=== PATIENT | male | born 1945 | race Caucasian/White ===

== ENCOUNTER 2018-08-09 13:01 | Outpatient (CLI) | payer MEDICARE ==
--- NOTE | 2018-08-09 14:27 | CT ---
CT BRAIN WITHOUT CONTRAST: HISTORY:Fall, contusion, headache the right occipital area of head. Headache COMPARISON:None FINDINGS: There are foci of decreased attenuation in the periventricular white matter, consistent with chronic small vessel ischemic disease. No evidence of acute infarct, hemorrhage, midline shift or abnormal extra-axial fluid collections is seen. The ventricular size is appropriate and the basilar cisterns are patent. The bony calvarium is intact. The visualized paranasal sinuses and mastoid air cells are well aerated. IMPRESSION: No CT evidence of acute intracranial process.
== END 2018-08-09 13:02 | disposition home or self-care (01) ==
LOC: BICCT 13:01
PROVIDERS: ATTEND Family Medicine
DX: S00.83XA Contusion of other part of head, initial encounter (principal)
CPT/HCPCS: 70450

== ENCOUNTER 2018-09-25 16:27 | Outpatient (CLI) | payer MEDICARE ==
--- NOTE | 2018-09-25 17:19 | MRI ---
MRI CERVICAL SPINE: HISTORY: Neck pain. TECHNIQUE: Multiplanar, multisequence, noncontrast enhanced MRI images of the cervical spine obtained. FINDINGS: No definite evidence of cord masses or lesions seen. C1-2: Unremarkable. C2-3: There is mild right C2-3 neural foraminal narrowing due to facet osteophyte encroachment. C3-4: There is disc desiccation seen. There is a broad-based disc osteophyte complex centrally comp ressing the thecal sac, resulting in moderate to severe thecal sac compression. Minimal cord compression is seen. There is moderate to severe right and severe left-sided C3-4 neural foraminal narrowing due to uncove rtebral osteophyte hypertrophy. C4-5: Disc desiccation is seen. There is a broad-based disc osteophyte complex centrally compressing the thecal sac, resulting in moderate to severe central stenosis. There is moderate to severe bilateral C4-5 neural foraminal narrowing due to uncovertebral osteophyte hypertrophy. C5-6: Disc desiccation is seen. There is a broad-based disc osteophyte complex centrally compressin g the thecal sac, resulting in moderate to severe central stenosis. There is moderate to severe right and left neural foraminal narrowing due to uncovertebral osteophyte hypertrophy. C6-7: Disc desiccation is seen. There is a broad-based central bilateral lateral recess and neural foraminal disc osteophyte complex compressing the thecal sac, resulting in moderate to severe left C6-7 neural foraminal narrowing and mild right-sided neural foraminal narrowing. C7-T1: There is a small central disc protrusion minimally but not significantly compressing the thec al sac. No evidence of cord compression is seen. The neural foramen are patent. IMPRESSION: Multilevel central and neural foraminal narrowing, resulting in compression of the thecal sac and edinson ral foramen at C3-4, C4-5, and C5-6, and to a lesser degree at C6-7. Transcribed Date/Time: 09/25/2018 5:55 PM
== END 2018-09-25 16:28 | disposition home or self-care (01) ==
LOC: MRI 16:27
PROVIDERS: ATTEND Family Medicine
DX: M54.2 Cervicalgia (principal); M48.02 Spinal stenosis, cervical region
CPT/HCPCS: 72141

== ENCOUNTER 2019-03-19 08:20 | Day surgery (SDC) | payer MEDICARE ==
[2019-03-16 14:28] VITALS: BMI 27.7
[2019-03-19 09:06] LABS: #Basophils 0.1 thou/uL (0.0-0.2); #Eosinphils 0.2 thou/uL (0.0-0.7); #Lymphocytes 2.3 thou/uL (1.20-3.40); #Monocytes 0.6 thou/uL (0.11-0.59); #Neutrophils 3.4 thou/uL (1.40-6.50); %Basophils 1.3 % (0.0-1.0); %Eosinophils 3.4 % (0.0-10.0); %Lymphocytes 34.7 % (21.0-51.0); %Monocytes 8.8 % (0.0-10.0); %Neutrophils 51.8 % (42.0-75.0); Mean Corpuscular HGB CONC 34.9 g/dL (32.0-36.0); Mean Corpuscular Volume 85.8 fL (78.0-98.0); Mean Platelet Volume 8.9 fL (7.4-10.4); Platelet Count 207 thou/uL (130-400); RBC Distribution Width 12.2 % (11.5-14.5); Red Blood Cell (RBC) Count 4.34 mill/uL (4.70-6.10); White Blood Cell (WBC) Count 6.5 thou/uL (4.8-10.8)
[2019-03-19 09:14] LABS: PTT 26.9 SEC (22.9-36.1)
[2019-03-19 09:53] LABS: Anion Gap 12 mmol/L (10-20); BUN (Urea Nitrogen) 22 mg/dL (8.4-25.7); Calc. Creatinine Clearance 76 mL/min (70-130); Calcium 9.3 mg/dL (7.8-10.44); Carbon Dioxide 25 mmol/L (23-31); Chloride 109 mmol/L (98-107); Estimated GFR-MDRD 78; Glucose 130 mg/dL (83-110); Sodium 142 mmol/L (136-145)
[2019-03-19] MEDS ORDERED: Lidocaine 1% (PF) 30 ML VIAL ONE (10:32)
[2019-03-19] MEDS ORDERED: Heparin 10,000 UNITS/1 ML VIAL ONE (10:32)
[2019-03-19] MEDS ORDERED: Heparin (Artline) 500 ML ONE (10:32)
[2019-03-19] MEDS ORDERED: PROPOFOL 20 ML ONE (10:50)
[2019-03-19] MEDS ORDERED: Isoproterenol 0.2 MG/1 ML AMP ONE (11:25)
[2019-03-19] MEDS ORDERED: DOPamine 400 MG/D5W 250 ML 250 ML ONE (11:54)
--- NOTE | 2019-03-19 14:01 | OP ---
DATE OF PROCEDURE: 03/19/2019 PROCEDURES PERFORMED: Electrophysiology study and radiofrequency ablation. REASON FOR PROCEDURE: Mr. Abel is a 73-year-old man with history of stroke in March, also had lower extremity clots with subsequent pulmonary venous embolism. He had remote history of bypass surgery. He had a LINQ recorder placed after a syncopal spell and was noted to have atrial flutter appearing rhythm, documented by his LINQ recorder. He is here for EP study and ablation. DESCRIPTION OF PROCEDURE: The patient received propofol for deep sedation by anesthesia specialist. After adequate level of sedation achieved, the right femoral venous area was prepped, draped, and anesthetized using subcutaneous lidocaine, and under ultrasound guidance, the right femoral vein was cannulated x2. Two 8-Persian short sheaths were introduced, through which a decapolar catheter was advanced to the right atrium, right ventricle, His bundle, and CS position. Pacing mapping and recording were performed in each location including pacing the left atrium via the CS. Following that, following findings were noted. The baseline rhythm was sinus rhythm with cycle length of 954 milliseconds, W[place] of 134 milliseconds, QRS is 65 millisecond, QT 404 milliseconds, AH 118 milliseconds, HV 52 milliseconds. Sinus node recovery time corrected was 428 milliseconds. AV Wenckebach cycle length was 390 milliseconds. Retrograde Wenckebach cycle length was 630 milliseconds. Concentric retrograde VA conduction was seen during ventricular pacing in the CS catheter. AV kristofer ERP was 600/340 milliseconds seen. No dual AV node physiology was present. Burst atrial pacing was performed, inducing an atrial flutter, which appears to be typical isthmus dependent with eventual self termination, but reinduced again. Cycle length about 230 millisecond. The burst overdrive atrial pacing at the cavotricuspid isthmus has yielded post pacing interval approximating the tachycardia, cycle length about 230 milliseconds. With the [employer] SFST catheter and 3D map of the right atrium, His bundle areas, CS os were obtained. During proximal CS pacing, cavotricuspid isthmus ablation was performed, prolonging the transisthmus time to 150 milliseconds. The longest transisthmus times were adjacent to the ablation line, suggestive of unilateral block. Burst atrial pacing on and off dopamine did not reinduce any tachyarrhythmias. No atrial fibrillation seen to be sustained during the study. The cardiac silhouette did not change pre and post procedure and the patient tolerated the procedure well. No complications noted. CONCLUSION: 1. Inducible typical isthmus dependent atrial flutter. 2. Cavotricuspid isthmus ablation prolongs transisthmus time to 150 milliseconds had re-inducibility to atrial flutter. 3. Borderline sinus kristofer function. 4. Normal atrioventricular kristofer infra-Hisian function. 5. No evidence of accessory pathway or dual atrioventricular kristofer physiology present. PLAN: 1. Continue monitoring with LINQ recorder for any recurrent atrial arrhythmias. 2. For now, hold off anticoagulation. Job ID: [id number]
--- NOTE | 2019-03-20 14:09 | EKG ---
Test Reason : PREOP Blood Pressure : / mmHG Vent. Rate : 064 BPM Atrial Rate : 064 BPM P-R Int : 176 ms QRS Dur : 126 ms QT Int : 396 ms P-R-T Axes : 067 -06 056 degrees QTc Int : 408 ms Normal sinus rhythm Right bundle branch block T wave abnormality, consider lateral ischemia Abnormal ECG No previous ECGs available Confirmed by MANUELA MEDINA, DR. Alexander ([id number]) on 03/20/2019 2:08:31 PM Referred By: GOYO Confirmed By:DR. Benjamin ROY MD
== END 2019-03-19 16:23 | disposition home or self-care (01) ==
LOC: CCL 08:20
PROVIDERS: ATTEND Internal Medicine Cardiovascular Disease
PROC: 4A023FZ Measurement of Cardiac Rhythm, Percutaneous Approach (ICD-10-PCS; principal; 2019-03-19)
PROC: 4A0234Z Measurement of Cardiac Electrical Activity, Percutaneous Approach (ICD-10-PCS; 2019-03-19)
PROC: 02583ZZ Destruction of Conduction Mechanism, Percutaneous Approach (ICD-10-PCS; 2019-03-19)
DX: I48.3 Typical atrial flutter (principal); I45.2 Bifascicular block; I25.10 Atherosclerotic heart disease of native coronary artery without angina pectoris; I10 Essential (primary) hypertension; E11.9 Type 2 diabetes mellitus without complications; M19.90 Unspecified osteoarthritis, unspecified site; Z79.01 Long term (current) use of anticoagulants; Z79.4 Long term (current) use of insulin; Z79.82 Long term (current) use of aspirin; Z79.899 Other long term (current) drug therapy; Z85.46 Personal history of malignant neoplasm of prostate; Z86.73 Personal history of transient ischemic attack (TIA), and cerebral infarction without residual deficits; Z95.1 Presence of aortocoronary bypass graft; Z95.5 Presence of coronary angioplasty implant and graft
CPT/HCPCS: 36415; 76942; 80048; 85025; 85610; 85730; 93005; 93010; 93613; 93623; 93653; C1732; C1769; J1265; J1644; J2001; J2704

== ENCOUNTER 2019-03-20 12:46 | Observation (INO) | payer MEDICARE ==
[2019-03-20] MEDS ORDERED: Iopamidol 370 76% 100 ML VIAL ONE (13:00)
[2019-03-20 13:31] LABS: #Basophils 0.1 thou/uL (0.0-0.2); #Eosinphils 0.2 thou/uL (0.0-0.7); #Lymphocytes 1.8 thou/uL (1.20-3.40); #Monocytes 0.8 thou/uL (0.11-0.59); #Neutrophils 8.8 thou/uL (1.40-6.50); %Basophils 0.5 % (0.0-1.0); %Eosinophils 1.9 % (0.0-10.0); %Lymphocytes 15.7 % (21.0-51.0); %Monocytes 6.7 % (0.0-10.0); %Neutrophils 75.2 % (42.0-75.0); Hemoglobin 13.8 g/dL (14.0-18.0); Mean Corpuscular HGB CONC 34.9 g/dL (32.0-36.0); Mean Corpuscular Hemoglobin 29.9 pg (27.0-31.0); Mean Corpuscular Volume 85.8 fL (78.0-98.0); Mean Platelet Volume 8.9 fL (7.4-10.4); Platelet Count 219 thou/uL (130-400); RBC Distribution Width 12.4 % (11.5-14.5); Red Blood Cell (RBC) Count 4.61 mill/uL (4.70-6.10); White Blood Cell (WBC) Count 11.7 thou/uL (4.8-10.8)
[2019-03-20 13:52] LABS: ALT (SGPT) 12 U/L (8-55); AST (SGOT) 27 U/L (5-34); Alkaline Phosphatase 109 U/L (40-110); Anion Gap 11 mmol/L (10-20); BUN (Urea Nitrogen) 19 mg/dL (8.4-25.7); Bilirubin, Total 0.8 mg/dL (0.2-1.2); CK (CPK) 83 U/L (30-200); Calc. Creatinine Clearance 0 mL/min (70-130); Calcium 9.4 mg/dL (7.8-10.44); Carbon Dioxide 26 mmol/L (23-31); Chloride 109 mmol/L (98-107); Estimated GFR-MDRD 89; Globulin 2.1 g/dL (2.4-3.5); Glucose 128 mg/dL (83-110); Lipase 22 U/L (8-78); Potassium 4.1 mmol/L (3.5-5.1); Protein, Total 6.1 g/dL (5.8-8.1); Sodium 142 mmol/L (136-145)
--- NOTE | 2019-03-20 14:04 | RAD ---
Chest AP view INDICATION: Chest pain COMPARISON: None FINDINGS: Lungs:The lungs are clear Cardiac silhouette:There is mild cardiomegaly and post-CABG change. There is a loop recorder overlyin g the left chest wall. Pulmonary vasculature:Normal Pleural spaces:No pleural effusion or pneumothorax is demonstrated. Upper abdomen:No abnormality seen. Osseous structures: No acute osseous abnormality. Additional findings:None. IMPRESSION: No acute cardiopulmonary abnormality.
[2019-03-20 14:20] LABS: CKMB 2.6 ng/mL (0-6.6)
[2019-03-20] MEDS ORDERED: Enoxaparin Sodium 80 MG/0.8 ML SYRINGE ONE (14:56)
--- NOTE | 2019-03-20 15:33 | CT ---
CT ANGIOGRAM THORAX WITH IV CONTRAST AND 3-D RECONSTRUCTIONS CLINICAL INDICATION: Chest pain and shortness of breath. COMPARISON: None FINDINGS: Pulmonary arteries: No filling defects are seen in the pulmonary arteries to suggest a pulmonary embo christiano. Aorta: Atherosclerotic vascular calcifications and plaque are seen in the thoracic aorta. The ascendi ng thoracic aorta is ectatic. There is no evidence of an aortic dissection. Lungs: There is linear scar versus atelectasis at the left lung base. The lungs are otherwise clear. No discrete pulmonary nodule, mass, or pleural effusion is identified. Mediastinum: Post surgical changes related to CABG are noted. Vascular calcifications are seen in the coronary arteries. No mediastinal lymphadenopathy is appreciated. Thyroid gland: Grossly normal in appearance where visualized. Osseous structures: Multilevel degenerative changes are seen in the thoracic spine. Chest wall: No abnormality visualized. Upper abdomen: Within normal limits for phase of imaging. IMPRESSION: 1. No CT evidence of a pulmonary embolus. 2. Atherosclerotic vascular calcifications and plaque involving the thoracic aorta and coronary arter ies with postsurgical changes related to prior CABG.
[2019-03-20] MEDS ORDERED: HumaLOG 300 UNITS/3 ML VIAL SC PRN (16:07)
[2019-03-20] MEDS ORDERED: Dextrose 50% Abboject 50 ML SYRINGE SLOW IVP PRN (16:07)
[2019-03-20] MEDS ORDERED: Ondansetron PF 4 MG/2 ML Vial IVP PRN (16:07)
[2019-03-20] MEDS ORDERED: Dextrose 5% in Water 1,000 ML IV PRN (16:07)
[2019-03-20 17:06] LABS: Critical Call Chem Troponin I RESULT DECREASING; Troponin I 0.862 ng/mL (< 0.028)
[2019-03-20 18:18] VITALS: BMI 30.3
[2019-03-20 19:58] LABS: Critical Call Chem Troponin I RESULT DECREASING; Troponin I 0.781 ng/mL (< 0.028)
[2019-03-20] MEDS ORDERED: Donepezil HCl 10 MG TAB PO SCH (21:00)
[2019-03-20] MEDS ORDERED: Enoxaparin Sodium 40 MG/0.4 ML SYRINGE SC SCH (21:00)
--- NOTE | 2019-03-20 22:58 | HP ---
CHIEF COMPLAINT: Chest pain and shortness of breath. HISTORY OF PRESENT ILLNESS: The patient is a 73-year-old male, who had ablation done on his heart yesterday by Dr. Yip and he did well. He was discharged home after the procedure, went home, went to bed, slept well and woke up in the morning and around 11 o'clock all of a sudden, he started having some shortness of breath and chest pain. He felt like elephant was sitting on his chest. He could not even talk. He was so short of breath and his called EMS and he was brought to the emergency room for further evaluation. PAST MEDICAL HISTORY: Positive for: 1. Diabetes mellitus type 2. 2. Hypertension. 3. 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 4. [place]. 5. Dementia. 6. Blood clots more than twice. 7. Coronary artery disease with stenting. PAST SURGICAL HISTORY: 1. Bilateral thumb surgery. 2. Appendectomy. 3. Tonsillectomy. 4. Right shoulder surgery for rotator cuff problem. 5. Cardiac ablation 03/19/2019. 6. CABG x3. SOCIAL HISTORY: He denies any alcohol use. He smokes very sporadically, maybe 2 cigarettes per week. He used to smoke a pack a day for approximately 25 years. FAMILY HISTORY: Mother at old age of dementia. Father had heart problem and he passed in his 90s. ALLERGIES: NONE. LABORATORY DATA: His last hemoglobin A1c was around 6. He was started on insulin and he is on 38 units of long-acting insulin daily. MEDICATIONS: Please refer to the list which is made and it is still not available at this point, to be reviewed, but it should be done in the next 30 minutes. REVIEW OF SYSTEMS: CONSTITUTIONAL: Negative for fever and chills. EYES: Negative for eye pain. Positive for some blurred vision in both eyes. CARDIOVASCULAR: Positive for chest pain. Negative for palpitations. PULMONARY: Positive for shortness of breath. Negative for cough. GI: Negative for nausea, vomiting, abdominal pain. : Negative for hematuria and dysuria. HEME/LYMPHATIC: Negative for easy bruisability and lymphedema. ENDOCRINE: Negative for polydipsia, polyuria. PSYCHIATRIC: Negative for homicidal or suicidal ideation or depression. PHYSICAL EXAMINATION: GENERAL: He is not in any distress during my visit. VITAL SIGNS: His blood pressure is 105/57, pulse is 60, respiratory rate is 16, O2 saturation is 100%. HEENT: His head is atraumatic and normocephalic. Eyes are PERRLA. Sclerae are nonicteric. Oral mucosa is moist. NECK: Supple. LUNGS: Clear. HEART: S1, S2 normal. No S3. No S4. ABDOMEN: Mildly tender in the epigastric area in both sides. No guarding, no masses. EXTREMITIES: No clubbing, cyanosis, or edema. Pulses palpable although somewhat diminished on both tibialis posterior and dorsalis pedis arteries similar bilaterally. NEUROLOGIC: He is alert and oriented x4. There is no any motor or sensory deficits present. Cranial nerves are intact. LABORATORY DATA: Labs showed white count of 11.7, hemoglobin of 13.8, hematocrit 39.6, platelet count is 219. D-dimer is 0.60. Sodium 142, potassium 4.1, chloride 109, CO2 of 26, BUN 19, creatinine 0.84, glucose 128. Troponin I 1.038. BNP 172.2, globulin 2.1 and the rest of chemistry is within normal limits. His CK is 83 and CK-MB is 2.6. Electrocardiogram was done and showed normal sinus rhythm with some right bundle-branch block. Chest x-ray personally reviewed by me showed no acute cardiopulmonary findings. The CT of the chest angiogram showed no evidence of pulmonary embolism. IMPRESSION: 1. Acute chest pain with lot of shortness of breath, rule out complication post ablation, rule out acute myocardial infarction, rule out acute pulmonary embolism. 2. Diabetes mellitus type 2. 3. History of lower extremity clot and pulmonary embolism. 4. History of old myocardial infarction. 5. Hypertension. 6. Cerebrovascular accident x2 without any deficits. 7. Dementia. PLAN: Admission for observation. CONDITION: Fair. ACTIVITY: Bedrest and bathroom privileges. IV Hep-Lock. DIET: Heart healthy diet. MEDICATIONS: 1. Lovenox 1 mg/kg started in the emergency room, then subcutaneously q.12 hours. Aspirin 325 mg once daily. 2. We are going to reconcile his home medications as soon as the list is available in the system. PLAN: We will get echocardiogram. We will get Cardiology consultation with Dr. Calvo and the case was discussed with him personally. We will start him on SCDs for DVT prophylaxis, mechanical. Job ID: [id number]
[2019-03-21 05:50] LABS: Anion Gap 12 mmol/L (10-20); BUN (Urea Nitrogen) 20 mg/dL (8.4-25.7); Calc. Creatinine Clearance 91 mL/min (70-130); Calcium 9.2 mg/dL (7.8-10.44); Carbon Dioxide 22 mmol/L (23-31); Chloride 109 mmol/L (98-107); Estimated GFR-MDRD 87; Glucose 255 mg/dL (83-110); Potassium 3.9 mmol/L (3.5-5.1); Sodium 139 mmol/L (136-145)
[2019-03-21 06:15] LABS: #Eosinphils 0.1 thou/uL (0.0-0.7); #Lymphocytes 1.8 thou/uL (1.20-3.40); #Monocytes 0.5 thou/uL (0.11-0.59); #Neutrophils 3.7 thou/uL (1.40-6.50); %Basophils 0.7 % (0.0-1.0); %Eosinophils 1.8 % (0.0-10.0); %Lymphocytes 29.4 % (21.0-51.0); %Monocytes 7.7 % (0.0-10.0); %Neutrophils 60.5 % (42.0-75.0); Hemoglobin 12.4 g/dL (14.0-18.0); Mean Corpuscular HGB CONC 34.8 g/dL (32.0-36.0); Mean Corpuscular Hemoglobin 29.7 pg (27.0-31.0); Mean Corpuscular Volume 85.4 fL (78.0-98.0); Mean Platelet Volume 9.1 fL (7.4-10.4); Platelet Count 155 thou/uL (130-400); Platelet Morphology Comment Appears Adequate; RBC Distribution Width 12.2 % (11.5-14.5); RBC Morphology Normal; Red Blood Cell (RBC) Count 4.18 mill/uL (4.70-6.10); White Blood Cell (WBC) Count 6.1 thou/uL (4.8-10.8)
--- NOTE | 2019-03-21 06:22 | CON ---
DATE OF CONSULTATION: REASON FOR CONSULTATION: Chest pain. PRIMARY [employer] SEQUESTRATION PLANT OPERATOR: Phu Rouse MD HISTORY OF PRESENT ILLNESS: Mr. Abel is a pleasant 73-year-old white gentleman, who comes to the hospital one day after having an atrial flutter ablation. He was at home after his ablation, doing well. This morning, he woke up and he had severe chest pressure. He rates it at a 10/10, could not even breathe from it, it is so severe. He has had to come in for evaluation. Initially, his troponin was 1, which is consistent with his history of recent ablation, but Cardiology is being consulted for this. On my evaluation, Mr. Abel is pain free. He is feeling much better, but he states that when they gave him a full dose aspirin that actually made a significant difference . Otherwise, no other issues at this time. PAST MEDICAL HISTORY: 1. Syncope and collapse. 2. Bifascicular block. 3. Coronary artery disease, status post CABG some years ago. 4. Stroke in March of last year. 5. DVTs and PEs in the past. 6. Peripheral vascular disease. 7. Atrial flutter. 8. Hypertension. 9. Cryptogenic stroke. 10. Type 2 diabetes. 11. Prostate cancer. 12. Arthritis. PAST SURGICAL HISTORY: 1. Stent placement. 2. CABG x3 ten years ago. 3. Hernia repair. 4. Appendectomy. 5. Tonsillectomy. 6. Prostatectomy. ALLERGIES: NO KNOWN DRUG ALLERGIES. OUTPATIENT MEDICATIONS: 1. Aspirin 81 mg b.i.d. 2. Tresiba FlexTouch 38 units subcu daily. 3. Glimepiride 4 mg a day. 4. Gemfibrozil 600 mg b.i.d. 5. Etodolac 400 mg b.i.d. 6. Bupropion. 7. Donepezil. 8. Plavix 75 mg a day. 9. Carvedilol 3.125 b.i.d. 10. Venlafaxine. 11. Amlodipine 5 mg a day. 12. Rosuvastatin 10 mg a day. 13. Ranolazine 500 mg b.i.d. 14. Omeprazole 40 mg a day. 15. Metoprolol succinate 100 mg a day. 16. Losartan 50 mg a day. 17. Levothyroxine 75 mcg a day. 18. Imdur 30 mg a day. ALLERGIES: NO KNOWN DRUG ALLERGIES. REVIEW OF SYSTEMS: A 12-point review of systems was done and was all negative unless stated in the history of present illness. PHYSICAL EXAMINATION: VITAL SIGNS: Temperature 98.6, pulse 68, respiratory rate 20, saturating 98% on room air, and blood pressure 146/69. GENERAL: Awake, alert, oriented x3. In no distress. HEENT: Normocephalic and atraumatic. NECK: Supple. LUNGS: Clear. CARDIOVASCULAR: S1 and S2. No S3 or S4. No murmurs. ABDOMEN: Soft. Positive bowel sounds. EXTREMITIES: No edema. SKIN: Warm and dry. LABORATORY DATA: Laboratory work was reviewed. White count of 11, hemoglobin of 13, hematocrit 39, platelet count of 219. D-dimer was high at 0.6. CMP was unremarkable. Troponin was 1.00, then 0.8 and 0.7 with a normal CK-MB. BNP was 172. Albumin of 4.0. DIAGNOSTIC DATA: CT of the chest was reviewed and no evidence of pulmonary embolism. Atherosclerotic vascular calcifications and plaque involving the thoracic aorta and coronary arteries with postsurgical changes related to CABG, but no other issues. Chest x-ray was reviewed. ASSESSMENT AND PLAN: 1. Chest pain. 2. Elevated troponins likely related to recent ablation. This would need to be a type 2 demand ischemia. This is just normal to have in the setting of ablation. 3. The level is downtrending appropriately to be directly related to his post-ablation state. 4. Atrial flutter, status post ablation. 5. Full anticoagulation with Eliquis. 6. Coronary artery disease, status post coronary artery bypass graft, stable at this time. PLAN: CT ruled out any major abnormalities. We will get a stat echocardiogram, make sure there is no significant fluid around the heart. He has had bypass, so he does not have an impact to pericardium; however, this could still be the case. No signs or any evidence of tamponade at this time. Thank you for letting us participate in the care of your patient. We will follow. Job ID: [id number]
[2019-03-21] MEDS ORDERED: Gemfibrozil 600 MG TAB PO SCH (07:30)
[2019-03-21] MEDS ORDERED: Levothyroxine Sodium 75 MCG TAB PO SCH (07:30)
[2019-03-21] MEDS ORDERED: Losartan 25 MG TAB PO SCH (09:00)
[2019-03-21] MEDS ORDERED: Rosuvastatin 10 MG TAB PO SCH (09:00)
[2019-03-21] MEDS ORDERED: buPROPion 75 MG TAB PO SCH (09:00)
[2019-03-21] MEDS ORDERED: Aspirin Chewable 81 MG TAB PO SCH (09:00)
[2019-03-21] MEDS ORDERED: Insulin Glargine 38 UNITS in Pre-Filled Syringe 1 EACH SC SCH (09:00)
[2019-03-21] MEDS ORDERED: Glimepiride 4 MG TAB PO SCH (09:00)
[2019-03-21] MEDS ORDERED: Isosorbide Mononitrate (ER) 30 MG TAB PO SCH (09:00)
[2019-03-21] MEDS ORDERED: Enoxaparin Sodium 80 MG/0.8 ML SYRINGE SC SCH (09:00)
[2019-03-21] MEDS ORDERED: Carvedilol 3.125 MG TAB PO SCH (09:00)
[2019-03-21] MEDS ORDERED: Amlodipine 5 MG TAB PO SCH (09:00)
[2019-03-21] MEDS ORDERED: Venlafaxine XR 37.5 MG CAP PO SCH (09:00)
[2019-03-21] MEDS ORDERED: Indomethacin 25 mg Capsule PO SCH ×2 (10:00→21:00)
--- NOTE | 2019-03-21 11:30 | PRG ---
DATE OF SERVICE: 03/21/2019 OBJECTIVE: VITAL SIGNS: Blood pressure is 131/73, pulse is 89, temperature is 97.6, respirations 14, O2 saturation is 95% on room air. HEENT: Head is atraumatic and normocephalic. Eyes are PERRLA. Sclerae are nonicteric. Oral mucosa is moist. NECK: Supple. LUNGS: Clear. HEART: S1 and S2 normal. No S3. No S4. ABDOMEN: Soft and nontender. Bowel sounds are present. No organomegaly. EXTREMITIES: No clubbing, cyanosis, or edema. NEUROLOGIC: He is alert and oriented x4. There are no any motor or sensory deficits present. Cranial nerves are intact. LABORATORY DATA: White count of 6.1, hemoglobin of 12.4, hematocrit 35.7, and platelet count is 155,000. Sodium of 139, potassium 3.9, chloride 109, CO2 of 22, BUN 20, creatinine 0.86, glucose is ranging from 148 to 213, and calcium is 9.2. Second troponin came back at 0.781. Echocardiogram showed ejection fraction of 60% to 65%, grade 1/3 diastolic dysfunction and also mildly dilated left atrium, trace mitral regurgitation, and mild aortic regurgitation. IMPRESSION: 1. Chest pain, resolved almost completely. There is some residual heaviness in the front chest area, and the second troponin came back down to 0.7, which indicates that most likely elevation of the troponin is related to his recent ablation [address] Calvo, ic designer [employer] on-call, saw the patient and he recommends NSAID and indomethacin use. 2. Diabetes mellitus, type 2. 3. History of lower extremity clot and pulmonary embolism. 4. History of old myocardial infarction. 5. Hypertension. 6. Cerebrovascular accident x2 without any deficits. 7. Dementia. PLAN: We are going to start him on indomethacin today. He is going to continue on his home medications along with Lovenox 1 mg/kg twice a day and we are going to hold his clopidogrel. Most likely, he will have cardiac catheterization done sometime in the future, maybe even tomorrow, it depends on ic designer [employer]'s decision since his primary ic designer [employer] was planning to do the testing. Job ID: [id number]
[2019-03-21 12:28] VITALS: BP 148/77; TEMP 97.3
--- NOTE | 2019-03-21 16:39 | DIS ---
DATE OF ADMISSION: 03/20/2019 DATE OF DISCHARGE: 03/21/2019 DIAGNOSES AT THE TIME OF DISCHARGE: 1. Chest pain, almost resolved, with elevated troponin, which was felt to be related to recent ablation done 2 days ago. 2. Diabetes mellitus, type 2. 3. History of lower extremity clot and pulmonary embolism. 4. History of old myocardial infarction. 5. Hypertension. 6. History of cerebrovascular accident x2 without any deficits. 7. Dementia. 8. Coronary artery disease, status post coronary artery bypass graft. 9. Peripheral vascular disease. 10. Atrial flutter, recently treated with ablation. 11. Prostate cancer. 12. Arthritis. HOSPITAL COURSE: The patient was a 73-year-old white man, who came to the hospital with 1-day history of chest pain and shortness of breath, which was rated at 10/10. It was severe to the point that he was not able to talk. Apparently, he had cardiac ablation done for his atrial flutter 2 days ago. His first troponin was 1. He was seen in the emergency room for evaluation. His white cell count was 11.7, hemoglobin 13.8, hematocrit 39.6, platelet count 219. D-dimer was 0.60. Electrolytes were within normal limits. Creatinine was 0.84. BNP 172.2. CK was 83, CK-MB 2.6. Electrocardiogram showed normal sinus rhythm with right bundle-branch block. Chest x-ray did not show any acute abnormalities. The CT of the chest angiogram showed no evidence of PE, only atherosclerotic vascular calcifications and plaque involving the thoracic aorta and coronary arteries with postsurgical changes related to prior CABG. The patient was admitted to telemetry floor for observation. He was monitored and seen by Dr. Calvo, who was dynamics ax developer on-call for Dr. Rouse, his primary dynamics ax developer. The patient was placed on Lovenox 1 mg/kg subcutaneously every 12 hours for possible IN, and he had stat echocardiogram done, which showed LVEF estimated at 60% to 65%, grade 1/3 diastolic dysfunction, mildly dilated left atrium, mitral annular calcification, trace of mitral regurgitation, mild aortic regurgitation, and mild tricuspid regurgitation. Subsequently, he was placed on indomethacin by Dr. Calvo, and he released him home with recommendation to follow up. The patient is doing well. His blood pressure is 148/77, pulse is 70, respiratory rate is 17, temperature is 97.3, and O2 saturation is 97% on room air. He is seen and examined before his discharge. DIET: At the time of discharge, diet: 2000 calories ADA. ACTIVITIES: He was told to take it easy for the next few days. MEDICATIONS: Medications at the time of discharge: He is placed back on his home medications, which are: 1. Aspirin 81 mg twice a day. 2. Tresiba 38 units subcutaneously daily. 3. Amaryl 4 mg once a day. 4. Gemfibrozil 600 mg twice a day. 5. Bupropion 75 mg twice a day. 6. Aricept 10 mg at bedtime. 7. Clopidogrel 75 mg once a day. 8. Carvedilol 3.125 mg daily. 9. Venlafaxine 37.5 mg daily. 10. Amlodipine 5 mg daily. 11. Rosuvastatin 10 mg at bedtime. 12. Ranolazine 500 mg daily. 13. Omeprazole 40 mg daily. 14. Metoprolol 100 mg at bedtime. 15. Losartan 50 mg once a day. 16. Levothyroxine 75 mcg once a day. 17. Isosorbide mononitrate 30 mg once a day. 18. Indomethacin 25 mg twice a day. FOLLOWUP: He is discharged home in good condition to follow up with primary in a week and with dynamics ax developer after he calls his office and makes followup appointment. Job ID: [id number]
--- NOTE | 2019-03-21 17:53 | PDOC.CPN ---
- Subjective Date: 03/21/19 Time: 11:00 Interval history: He is doing well. His pain is resolved with NSAID's. - Review of Systems General: denies: fever/chills, weight/appetite/sleep changes, night sweats, fatigue Respiratory: denies: cough, congestion, shortness of breath, exercise intolerance Cardiovascular: denies: chest pain, palpitation, edema, paroxysmal nocturnal dyspnea, orthopnea Gastrointestinal: denies: nausea, vomiting, diarrhea, constipation, abd pain, GI bleeding Musculoskeletal: denies: pain, tenderness, stiffness, swelling, arthritis/ arthralgias Neurological: denies: numbness, syncope, seizure, weakness - Objective Allergies/Adverse Reactions: Allergies Allergy/AdvReac Type Severity Reaction Status Date / Time No Known Allergies Allergy Verified 03/20/19 19:43 Vital Signs & Weight: Vital Signs Temp Pulse Resp BP Pulse Ox 03/21/19 11:18 97.3 F L 70 17 148/77 H 97 03/21/19 07:55 89 03/21/19 07:15 97.1 F L 80 16 181/89 H 95 Weight 187 lb 12.8 oz - Physical Exam General: alert & oriented x3 HEENT: mucus membranes moist Neck: supple neck Cardiac: regular rate and rhythm, no murmur Lungs: normal breath sounds Neuro: grossly intact Abdomen: active bowel sounds, soft, non-tender Extremities: no edema Skin: clear Musculoskeletal: no pain - Labs Result Diagrams: 03/21/19 05:00 03/21/19 05:00 Troponin/CKMB CK-MB (CK-2) 2.6 ng/mL (0-6.6) 03/20/19 13:22 Troponin I 0.781 ng/mL (< 0.028) H* 03/20/19 19:23 - Telemetry Sinus rhythms and dysrhythmias: sinus rhythm - Assessment/Plan Assessment/Plan: 1. Chest pain. 2. S/p Aflutter ablation 3. CAD, s/p CABG in the past. 4. Hx of DVT/PE PLAN: - Continue indomethacine at 25 mg BID for 1 month. - Follow up with Dr. Rouse in one month for down titration of NSAIDs - If pain recurs will need C.
--- NOTE | 2019-03-21 18:51 | EKG ---
Test Reason : Blood Pressure : / mmHG Vent. Rate : 071 BPM Atrial Rate : 071 BPM P-R Int : 154 ms QRS Dur : 122 ms QT Int : 408 ms P-R-T Axes : 063 017 083 degrees QTc Int : 443 ms Normal sinus rhythm Right bundle branch block Abnormal ECG Confirmed by MANUELA MEDINA, DR. Alexander ([id number]) on 03/21/2019 6:51:30 PM Referred By: Confirmed By:DR. Benjamin ROY MD
== END 2019-03-21 14:25 | disposition home or self-care (01) ==
LOC: ERS 12:46 → 2SW 18:13
PROVIDERS: ADMIT Internal Medicine; ATTEND Internal Medicine
DX: R07.89 Other chest pain (principal); E11.9 Type 2 diabetes mellitus without complications; I25.2 Old myocardial infarction; I10 Essential (primary) hypertension; I48.92 Unspecified atrial flutter; I25.10 Atherosclerotic heart disease of native coronary artery without angina pectoris; I08.2 Rheumatic disorders of both aortic and tricuspid valves; I73.9 Peripheral vascular disease, unspecified; F03.90 Unspecified dementia, unspecified severity, without behavioral disturbance, psychotic disturbance, mood disturbance, and anxiety; M19.90 Unspecified osteoarthritis, unspecified site; Z79.4 Long term (current) use of insulin; Z79.82 Long term (current) use of aspirin; Z79.899 Other long term (current) drug therapy; Z86.711 Personal history of pulmonary embolism; Z86.73 Personal history of transient ischemic attack (TIA), and cerebral infarction without residual deficits; Z95.1 Presence of aortocoronary bypass graft; Z95.5 Presence of coronary angioplasty implant and graft; Z79.01 Long term (current) use of anticoagulants; F17.210 Nicotine dependence, cigarettes, uncomplicated
CPT/HCPCS: 71045; 71275; 80048; 80053; 82550; 82553; 82962 ×2; 83690; 83880; 84484 ×2; 85025 ×2; 85379; 93005; 93306; 96360; 96361; 96372 ×2; 99285; G0378 ×3; 36415; 36416; J1650; J1815; Q9967

== ENCOUNTER 2019-04-09 13:14 | Outpatient (CLI) | payer MEDICARE ==
[2019-04-09 15:50] LABS: #Basophils 0.1 thou/uL (0.0-0.2); #Eosinphils 0.2 thou/uL (0.0-0.7); #Lymphocytes 2.5 thou/uL (1.20-3.40); #Monocytes 0.7 thou/uL (0.11-0.59); #Neutrophils 6.8 thou/uL (1.40-6.50); %Basophils 0.6 % (0.0-1.0); %Eosinophils 1.9 % (0.0-10.0); %Lymphocytes 24.3 % (21.0-51.0); %Monocytes 7.1 % (0.0-10.0); %Neutrophils 66.1 % (42.0-75.0); Hemoglobin 14.1 g/dL (14.0-18.0); Mean Corpuscular HGB CONC 35.2 g/dL (32.0-36.0); Mean Corpuscular Hemoglobin 30.3 pg (27.0-31.0); Mean Corpuscular Volume 86.2 fL (78.0-98.0); Mean Platelet Volume 9.1 fL (7.4-10.4); Platelet Count 257 thou/uL (130-400); RBC Distribution Width 12.4 % (11.5-14.5); Red Blood Cell (RBC) Count 4.67 mill/uL (4.70-6.10); White Blood Cell (WBC) Count 10.2 thou/uL (4.8-10.8)
[2019-04-09 16:10] LABS: ALT (SGPT) 15 U/L (8-55); AST (SGOT) 25 U/L (5-34); Albumin 4.3 g/dL (3.4-4.8); Alkaline Phosphatase 137 U/L (40-110); Anion Gap 12 mmol/L (10-20); BUN (Urea Nitrogen) 21 mg/dL (8.4-25.7); Bilirubin, Total 0.7 mg/dL (0.2-1.2); Calc. Creatinine Clearance 0 mL/min (70-130); Calcium 9.9 mg/dL (7.8-10.44); Carbon Dioxide 28 mmol/L (23-31); Chloride 104 mmol/L (98-107); Estimated GFR-MDRD 74; Globulin 2.8 g/dL (2.4-3.5); Glucose 152 mg/dL (83-110); Potassium 4.2 mmol/L (3.5-5.1); Protein, Total 7.1 g/dL (5.8-8.1); Sodium 140 mmol/L (136-145)
== END 2019-04-09 13:15 | disposition home or self-care (01) ==
LOC: LABBT 13:14
PROVIDERS: ATTEND Internal Medicine Cardiovascular Disease
DX: Z01.812 Encounter for preprocedural laboratory examination (principal); R07.9 Chest pain, unspecified
CPT/HCPCS: 80053; 85025

== ENCOUNTER 2019-04-11 06:05 | Day surgery (SDC) | payer MEDICARE ==
[2019-04-09 13:58] VITALS: BMI 29.0
[2019-04-11] MEDS ORDERED: Heparin (Artline) 1,000 ML ONE (06:48)
[2019-04-11] MEDS ORDERED: Nitroglycerin 100MG/250ML BOT 250 ML ONE (07:38)
[2019-04-11] MEDS ORDERED: Carvedilol 3.125 MG TAB ONE (12:37)
[2019-04-11] MEDS ORDERED: Losartan 25 MG TAB PO SCH (12:45)
[2019-04-11] MEDS ORDERED: Iopamidol 370 76% 100 ML VIAL ONE (13:21)
== END 2019-04-11 14:00 | disposition home or self-care (01) ==
LOC: CCL 06:05
PROVIDERS: ATTEND Internal Medicine Cardiovascular Disease
PROC: 4A023N7 Measurement of Cardiac Sampling and Pressure, Left Heart, Percutaneous Approach (ICD-10-PCS; principal; 2019-04-11)
PROC: B2111ZZ Fluoroscopy of Multiple Coronary Arteries using Low Osmolar Contrast (ICD-10-PCS; 2019-04-11)
PROC: B2181ZZ Fluoroscopy of Left Internal Mammary Bypass Graft using Low Osmolar Contrast (ICD-10-PCS; 2019-04-11)
PROC: B2171ZZ Fluoroscopy of Right Internal Mammary Bypass Graft using Low Osmolar Contrast (ICD-10-PCS; 2019-04-11)
DX: I25.810 Atherosclerosis of coronary artery bypass graft(s) without angina pectoris (principal); I25.10 Atherosclerotic heart disease of native coronary artery without angina pectoris; I25.82 Chronic total occlusion of coronary artery; I10 Essential (primary) hypertension; E11.9 Type 2 diabetes mellitus without complications; M19.90 Unspecified osteoarthritis, unspecified site; I25.2 Old myocardial infarction; I48.92 Unspecified atrial flutter; F17.210 Nicotine dependence, cigarettes, uncomplicated; Z86.73 Personal history of transient ischemic attack (TIA), and cerebral infarction without residual deficits; Z79.02 Long term (current) use of antithrombotics/antiplatelets; Z79.4 Long term (current) use of insulin; Z79.82 Long term (current) use of aspirin; Z79.899 Other long term (current) drug therapy; Z95.5 Presence of coronary angioplasty implant and graft
CPT/HCPCS: 36416; 76942; 93459; 93567; C1769; J1644; Q9967

== ENCOUNTER 2019-07-01 13:56 | Inpatient (IN) | payer MEDICARE ==
--- NOTE | 2019-07-01 14:11 | CT ---
CT BRAIN NONCONTRAST: DATE: 07/01/2019 HISTORY: 73-year-old male with acute stroke: Dysarthria and right facial droop. This level 1 stroke alert report was called by Dr. Brooke by telephone to Dr. Patel at 2:07 PM 2019 FINDINGS: There is no evidence of acute intra-axial or extra-axial hemorrhage. There is no midline shift or any other mass effect. There is no extra-axial fluid collection. There is no evidence of obstructive hydrocephalus. Calvarium is intact. Small old white matter infarction of left external capsule. No in terval change since 08/09/2018. IMPRESSION: No acute intracranial findings.
[2019-07-01 14:23] LABS: #Eosinphils 0.2 thou/uL (0.0-0.7); #Monocytes 0.4 thou/uL (0.11-0.59); #Neutrophils 3.1 thou/uL (1.40-6.50); %Basophils 0.5 % (0.0-1.0); %Eosinophils 3.9 % (0.0-10.0); %Lymphocytes 34.6 % (21.0-51.0); %Monocytes 7.5 % (0.0-10.0); %Neutrophils 53.6 % (42.0-75.0); Hemoglobin 15.2 g/dL (14.0-18.0); Mean Corpuscular HGB CONC 34.7 g/dL (32.0-36.0); Mean Corpuscular Hemoglobin 29.6 pg (27.0-31.0); Mean Corpuscular Volume 85.4 fL (78.0-98.0); Platelet Count 261 thou/uL (130-400); RBC Distribution Width 12.9 % (11.5-14.5); Red Blood Cell (RBC) Count 5.14 mill/uL (4.70-6.10); White Blood Cell (WBC) Count 5.9 thou/uL (4.8-10.8)
[2019-07-01 14:30] LABS: Prothrombin Time 12.4 SEC (12.0-14.7)
[2019-07-01 14:31] LABS: INR-International Normal Ratio 0.9
--- NOTE | 2019-07-01 14:34 | CT ---
CT ANGIOGRAM NECK WITH CONTRAST CT ANGIOGRAM BRAIN WITH CONTRAST: DATE: 07/01/2019 HISTORY: 73-year-old male with acute stroke: Dysarthria and right facial droop TECHNIQUE: After IV contrast injection, arterial bolus chasing technique scan performed from AP window to vertex of head. Coronal and sagittal 3-D MIP reconstructions. FINDINGS: Mostly noncalcified atherosclerotic plaque causing irregularity of many major arteries of neck. Dural venous sinuses: No thrombosis or occlusion. Bilateral MCAs: No high-grade stenosis or occlusion of M1 segments. Bilateral ACAs: No high-grade stenosis or occlusion of A1 and A2 segments. Bilateral carotid siphons: Atherosclerotic calcification. No high-grade stenosis. Bilateral intraperitoneal vertebrals: No high-grade short segment focal acquired stenosis. Basilar: No high-grade short segment focal stenosis. Bilateral videotape sales representative: No high-grade stenosis or occlusion of P1 and P2 segments. Aortic arch: Ectasia of ascending aorta. Extensive mostly noncalcified atherosclerotic plaque. No dis section. Brachiocephalic: No high-grade stenosis. Right subclavian: No high-grade stenosis.. Right cervical vertebral no high-grade stenosis. Left subclavian: No high-grade stenosis identified proximally. Left cervical vertebral: No high-grade stenosis. Right common carotid: No high-grade stenosis. Right external carotid: Moderate stenosis at origin. Right internal carotid: Mild calcified and noncalcified plaque, mostly noncalcified. No high-grade st enosis. Left internal carotid: Mild mostly noncalcified plaque proximally. No high-grade stenosis. IMPRESSION: 1) atherosclerosis of all major arteries of neck. 2) no high-grade stenosis of major arteries of neck. 3) no M1 segment middle cerebral artery high-grade stenosis or thrombus or occlusion.
[2019-07-01] MEDS ORDERED: Iopamidol-370 76% 500 ML 1 ML ONE (14:36)
[2019-07-01 14:38] LABS: ALT (SGPT) 12 U/L (8-55); AST (SGOT) 20 U/L (5-34); Albumin 4.2 g/dL (3.4-4.8); Alkaline Phosphatase 131 U/L (40-110); Anion Gap 12 mmol/L (10-20); BUN (Urea Nitrogen) 12 mg/dL (8.4-25.7); Bilirubin, Total 0.6 mg/dL (0.2-1.2); CK (CPK) 80 U/L (30-200); Calc. Creatinine Clearance 0 mL/min (70-130); Calcium 9.8 mg/dL (7.8-10.44); Carbon Dioxide 28 mmol/L (23-31); Chloride 105 mmol/L (98-107); Estimated GFR-MDRD 82; Globulin 2.9 g/dL (2.4-3.5); Glucose 133 mg/dL (83-110); Potassium 4.2 mmol/L (3.5-5.1); Protein, Total 7.1 g/dL (5.8-8.1); Sodium 141 mmol/L (136-145)
[2019-07-01] MEDS ORDERED: Aspirin Chewable 81 MG TAB ONE (14:46)
--- NOTE | 2019-07-01 15:04 | RAD ---
RADIOGRAPH CHEST 1 VIEW: DATE: 07/01/2019 HISTORY: 73-year-old male with acute stroke. Concern for aspiration. FINDINGS: There are no airspace densities, pulmonary edema, pneumothorax, or cardiomegaly. The lateral costophr enic angles are sharp. Sternotomy wires. Loop recorder overlying the left lower chest. IMPRESSION: 1. No acute cardiopulmonary findings. 2. Status post open heart surgery is evidence for heart disease.
[2019-07-01] MEDS ORDERED: Acetaminophen 325 MG TAB PO PRN (15:48)
[2019-07-01] MEDS ORDERED: hydrALAZINE 20 MG/ML VIAL SLOW IVP PRN (15:48)
[2019-07-01] MEDS ORDERED: Ondansetron PF 4 MG/2 ML Vial IVP PRN (15:48)
[2019-07-01] MEDS ORDERED: HumaLOG 300 UNITS/3 ML VIAL SC PRN (15:59)
[2019-07-01] MEDS ORDERED: Dextrose 5% in Water 1,000 ML IV PRN (15:59)
[2019-07-01] MEDS ORDERED: Dextrose 50% Abboject 50 ML SYRINGE SLOW IVP PRN (15:59)
[2019-07-01] MEDS ORDERED: HYDROcodone/Acetaminophen 5/325 mg Tablet PO PRN (16:13)
--- NOTE | 2019-07-01 17:07 | HP ---
PRIMARY CARE PROVIDER: Dr. Arellano. CHIEF COMPLAINT: Stroke. HISTORY OF PRESENT ILLNESS: This is a 73-year-old male with history of coronary artery disease and stents and CABG, stroke in the past, diabetes mellitus type 2 , hypertension, dementia, venous thromboembolism, who presents to the emergency room today via EMS with a concern for stroke. The patient reports that he went to bed feeling well last night. He woke up today around 12:30, walked into another room to speak to his and was unable to. He also noticed some left-sided weakness. He denies any recent illness. Denies fevers, chills, vision changes, or swallowing problems. He does note some ongoing nausea and vomiting with the last episode a few days ago and states he has some gagging with medications or food. The only change in routine is that yesterday he moved heavy items in the garage. He has not taken any of his usual medications today. He denies any precipitating or relieving factors. In the emergency room, the patient was found clinically to have a stroke with left-sided deficits to include a left facial droop, he received 324 mg of aspirin, and hospitalist called for admission. Given he woke up with symptoms, he was not a candidate for tPA. ALLERGIES: NO KNOWN DRUG ALLERGIES. PAST MEDICAL HISTORY: 1. Diabetes mellitus type 2. 2. Hypertension. 3. History of stroke. He denies any residual deficits. 4. History of coronary artery disease and stenting and CABG. 5. Dementia. 6. Venous thromboembolism. 7. Osteoarthritis. 8. Dyslipidemia. PAST SURGICAL HISTORY: 1. Bilateral thumb surgery. 2. Appendectomy. 3. Tonsillectomy. 4. Right shoulder surgery. 5. CABG. 6. Cardiac ablation. SOCIAL HISTORY: The patient lives with his , who is his surrogate decision maker. He is a full code. He denies any alcohol, and reports both a remote history of smoking and current tobacco use of 0 to 2 times per month. FAMILY HISTORY: Significant for dementia and heart problems. REVIEW OF SYSTEMS: Positive for left-sided weakness, difficulty with speech both with word-finding and with pronunciation or enunciation, and some intermittent vomiting for which he takes Zofran at home. Negative for fevers, chills, vision changes, swallow changes, chest pain, or difficulty breathing. All remaining review of systems are reviewed and negative. CURRENT MEDICATIONS: Reconciled with the bottles; 1. Amlodipine 5 mg daily. 2. Aspirin 81 mg daily. 3. Bupropion 75 mg two tablets b.i.d. 4. Carvedilol 3.125 mg once daily. 5. Donepezil 10 mg daily. 6. Etodolac 400 mg b.i.d. 7. Gemfibrozil 600 mg b.i.d. 8. Glimepiride 4 mg daily. 9. Isosorbide mononitrate 30 mg daily. 10. Losartan 50 mg daily. 11. Metoprolol succinate 100 mg daily. 12. Omeprazole 40 mg daily. 13. Ranolazine 500 mg b.i.d. 14. Rosuvastatin 10 mg daily. 15. Venlafaxine 37.5 mg extended release three tablets once daily. 16. Indomethacin 25 mg b.i.d. 17. Zofran 4 mg every 6 hours as needed. PHYSICAL EXAMINATION: VITAL SIGNS: Blood pressure 211/99, pulse 62, respirations 17, temperature 97.7 , saturations 99% on room air. GENERAL: Awake, alert, responsive, in no apparent distress. HEENT: Pupils are equal and round. Oral mucosa is pink and moist. NECK: Supple, nontender. LYMPHATICS: No palpable cervical or supraclavicular lymphadenopathy. VASCULAR: 2+ posterior tibialis, no carotid bruits. LUNGS: Clear to auscultation bilateral. No audible wheezing, rhonchi, or rales. HEART: Normal S1 and S2. Regular rate and rhythm. No significant murmur. ABDOMEN: Soft. Present bowel sounds. Nontender, nondistended. EXTREMITIES: No clubbing, cyanosis, or edema. NEURO: Left-sided facial droop. Tongue deviation to the left. Strength 5/5 in the upper extremities, 4+/5 in the left lower extremity, 5/5 in the right lower extremity. Speech is choppy, with pauses for word finding and some difficulty with expressing what he wants to say. SKIN: No visible rashes. PSYCH: Appears euthymic. LABORATORY DATA: Personally reviewed. CBC; 5.9, 15.2, 43.9, 261. INR 0.9. Renal panel; 141, 4.2, 105, 28, 12, 0.9, 133. T-bilirubin 0.6, AST 20, ALT 12, alkaline phosphatase 131, total protein 7.1, albumin 4.2. IMAGING STUDIES: EKG is normal axis, sinus rhythm, right bundle-branch block, low voltage, no ST changes. CT of the brain without contrast, no acute intracranial findings. CT angio of the head and neck, atherosclerosis of all major arteries in the neck. No high-grade stenosis of major arteries in the neck. No M1 segment, MCA high- grade stenosis, or thrombus or occlusion. Chest x-ray personally reviewed, no acute cardiopulmonary findings, status post open heart surgery with a loop recorder in place. IMPRESSION: 1. Ischemic stroke with left-sided deficits including expressive aphasia. 2. Hypertension, uncontrolled. 3. Coronary artery disease with history of stent and coronary artery bypass graft, currently asymptomatic. 4. Type 2 diabetes, appears controlled. 5. Dementia. 6. History of venous thromboembolism. 7. Osteoarthritis. 8. Dyslipidemia. 9. Gastroesophageal reflux disease. PLAN: 1. Admission as an inpatient to the hospital, greater than 2 midnights anticipated for new ischemic stroke evaluation and treatment. 2. Stroke Team which includes Neurology consultation; full-dose aspirin; high- dose statin; and Speech, PT, OT evaluations. Check echo and obtain MRI. 3. Permissive hypertension. We will however continue his long-acting nitrate, long-acting metoprolol, and ranolazine due to his cardiac history. 4. Continue medications for mood and dementia. 5. Holding his amlodipine, losartan, carvedilol as I am uncertain of the duplication with the metoprolol for now, to allow for permissive hypertension. 6. Sliding scale insulin, and before meals and at bedtime glucose checks. 7. Carbohydrate consistent diet. 8. pipe coverer to Tylenol and we will avoid NSAIDs for now to treat the chronic osteoarthritis pain. We will use Tylenol and other non-NSAID products. 9. DVT prophylaxis with enoxaparin. 10. GI prophylaxis, not indicated. He is on a PPI at home. We will continue that. 11. Code status is full. Surrogate decision maker is the patient's . 12. Reviewed the plan of care with the patient, who demonstrates understanding. No questions or further needs at the end of evaluation. 13. The patient is at high risk given age, comorbidities, and current presentation. Job ID: [id number] [facility]
[2019-07-01 17:36] VITALS: BMI 28.6
[2019-07-01] MEDS: buPROPion 75 MG TAB PO SCH (21:36)
[2019-07-01] MEDS: Rosuvastatin 20 MG TAB PO SCH (21:36)
[2019-07-01] MEDS: Donepezil HCl 10 MG TAB PO SCH (21:37)
[2019-07-02 04:52] LABS: #Eosinphils 0.3 thou/uL (0.0-0.7); #Monocytes 0.7 thou/uL (0.11-0.59); #Neutrophils 5.4 thou/uL (1.40-6.50); %Basophils 0.4 % (0.0-1.0); %Lymphocytes 32.1 % (21.0-51.0); %Monocytes 6.9 % (0.0-10.0); %Neutrophils 57.6 % (42.0-75.0); Hemoglobin 13.9 g/dL (14.0-18.0); Mean Corpuscular HGB CONC 35.3 g/dL (32.0-36.0); Mean Corpuscular Hemoglobin 30.2 pg (27.0-31.0); Mean Corpuscular Volume 85.6 fL (78.0-98.0); Mean Platelet Volume 8.8 fL (7.4-10.4); Platelet Count 246 thou/uL (130-400); White Blood Cell (WBC) Count 9.4 thou/uL (4.8-10.8)
[2019-07-02 05:12] LABS: Anion Gap 14 mmol/L (10-20); BUN (Urea Nitrogen) 16 mg/dL (8.4-25.7); Calc. Creatinine Clearance 91 mL/min (70-130); Calcium 9.4 mg/dL (7.8-10.44); Carbon Dioxide 24 mmol/L (23-31); Cardiac Risk 5.4 (Less than 4.5); Chloride 104 mmol/L (98-107); Cholesterol 162 mg/dl (< 200 Desired); Estimated GFR-MDRD Greater than 90; Glucose 79 mg/dL (83-110); HDL Cholesterol 30 mg/dL (>60 Neg Risk); LDL Cholesterol, Calculated 94 mg/dL; Potassium 3.5 mmol/L (3.5-5.1); Sodium 138 mmol/L (136-145); Triglycerides 192 mg/dL (Less than 150)
[2019-07-02] MEDS ORDERED: Lorazepam 1 MG TAB PO SCH (08:00)
[2019-07-02] MEDS: Isosorbide Mononitrate (ER) 30 MG TAB PO SCH (08:30)
[2019-07-02] MEDS: Enoxaparin Sodium 40 MG/0.4 ML SYRINGE SC SCH (08:32)
[2019-07-02] MEDS ORDERED: Aspirin 325 mg Enteric Coated Tablet PO SCH (09:00)
--- NOTE | 2019-07-02 09:18 | MRI ---
MRI BRAIN NONCONTRAST: DATE: 07/02/2019 HISTORY: 73-year-old male with acute stroke: dysarthria and right facial droop. COMPARISON: No prior brain MRIs. FINDINGS: There are several very small foci of restricted diffusion associated with moderately hyperintense sig nal intensity on T2 WI and FLAIR, involving right upper lateral and posterior frontal cortex, and a f ew in the right centrum semiovale. There are a few such tiny T2 and FLAIR hyperintensities in the right [place] radiata, and a small lesi on in the left insula, which do not have restricted diffusion, representing tiny and small old infarc tions. No evidence of recent or remote intra-axial hemorrhage, mass effect, midline shift, extra-axial fluid collection, or obstructive hydrocephalus. IMPRESSION: 1. Several small and tiny acute infarctions in the right middle cerebral artery territory. 2. A few tiny right cerebral deep white matter old lacunar infarctions and old left insular small in farction. JN Wolfgang POS: CET
[2019-07-02] MEDS: buPROPion 75 MG TAB PO SCH ×2 (09:33→21:05)
[2019-07-02] MEDS: Venlafaxine XR 37.5 MG CAP PO SCH (09:34)
[2019-07-02] MEDS: HumaLOG 300 UNITS/3 ML VIAL SC PRN ×2 (11:27→17:07)
--- NOTE | 2019-07-02 14:46 | PDOC.HOSPP ---
- Subjective Encounter Date: 07/02/19 Encounter Time: 14:44 Subjective: still dysarthric - Objective Vital Signs & Weight: Vital Signs (12 hours) Temp Pulse Pulse Pulse Resp BP BP 07/02/19 11:43 97.6 F 69 16 07/02/19 11:16 69 70 129/82 163/85 H 07/02/19 09:13 68 69 154/82 H 175/89 H 07/02/19 08:00 97.6 F 66 16 07/02/19 07:40 97.6 F 66 16 07/02/19 03:30 97.6 F 71 20 BP BP Pulse Ox 07/02/19 11:43 163/85 H 98 07/02/19 11:16 07/02/19 09:13 07/02/19 08:00 162/95 H 97 07/02/19 07:40 162/95 H 97 07/02/19 03:30 142/85 H 98 Weight Weight 177 lb 4.8 oz Result Diagrams: 07/02/19 04:31 07/02/19 04:31 Additional Labs: Accuchecks 07/02/19 07/02/19 07/01/19 10:40 06:08 21:45 POC Glucose 202 H 82 125 H Radiology Reviewed by me: Yes (MRI no acute R MCA infarct) Hospitalist ROS - Medication Medications: Active Medications Generic Name Dose Route Start Last Admin Trade Name Freq PRN Reason Stop Dose Admin Aspirin 325 mg 07/02/19 09:00 07/02/19 08:32 Ecotrin PO 325 mg DAILY JOSE RAFAEL Administration Bupropion HCl 150 mg 07/01/19 21:00 07/02/19 09:33 Wellbutrin PO 150 mg BID JOSE RAFAEL Administration Donepezil HCl 10 mg 07/01/19 21:00 07/01/19 21:37 Aricept PO 10 mg HS JOSE RAFAEL Administration Enoxaparin Sodium 40 mg 07/02/19 09:00 07/02/19 08:32 Lovenox SC 40 mg 0900 JOSE RAFAEL Administration Insulin Human Lispro 0 units 07/01/19 15:59 07/02/19 11:27 Humalog SC 3 unit .MILD SLIDING SCALE PRN Administration Mild Correctional Scale Isosorbide Mononitrate 30 mg 07/02/19 09:00 07/02/19 08:30 Imdur Er PO 30 mg DAILY JOSE RAFAEL Administration Metoprolol Succinate 100 mg 07/02/19 09:00 07/02/19 08:32 Toprol Xl PO 100 mg DAILY JOSE RAFAEL Administration Pantoprazole Sodium 40 mg 07/02/19 09:00 07/02/19 08:32 Protonix PO 40 mg DAILY JOSE RAFAEL Administration Ranolazine 500 mg 07/01/19 21:00 07/02/19 08:31 Ranexa PO 500 mg BID JOSE RAFAEL Administration Rosuvastatin Calcium 40 mg 07/01/19 21:00 07/01/19 21:36 Crestor PO 40 mg HS JOSE RAFAEL Administration Venlafaxine HCl 112.5 mg 07/02/19 09:00 07/02/19 09:34 Effexor Xr PO 112.5 mg DAILY JOSE RAFAEL Administration - Exam General Appearance: awake alert Neck: no JVD Heart: RRR, no murmur Respiratory: CTAB Gastrointestinal: soft, normal bowel sounds Extremities: no edema Neurological: cranial nerve grossly intact, no focal deficits Neurological - other findings: FNF normal, toes downgoing Hosp A/P (1) CVA (cerebral vascular accident) Code(s): I63.9 - CEREBRAL INFARCTION, UNSPECIFIED Status: Acute Qualifiers: CVA mechanism: unspecified Qualified Code(s): I63.9 - Cerebral infarction, unspecified (2) CAD (coronary artery disease) Code(s): I25.10 - ATHSCL HEART DISEASE OF [place] CORONARY ARTERY W/O ANG PCTRS Status: Chronic Qualifiers: Coronary Disease-Associated Artery/Lesion type: [place] artery [place] vs. transplanted heart: [place] heart Associated angina: without angina Qualified Code(s): I25.10 - Atherosclerotic heart disease of [place] coronary artery without angina pectoris (3) DM type 2 (diabetes mellitus, type 2) Status: Acute Qualifiers: Diabetes mellitus oil heaterman insulin use: with oil heaterman use Diabetes mellitus complication status: with neurologic complications (4) HTN (hypertension) Code(s): I10 - ESSENTIAL (PRIMARY) HYPERTENSION Status: Chronic Qualifiers: Hypertension type: essential hypertension Qualified Code(s): I10 - Essential (primary) hypertension (5) Dyslipidemia Code(s): E78.5 - HYPERLIPIDEMIA, UNSPECIFIED Status: Chronic - Plan cont ASA add statin awaeit neuro consult
[2019-07-02] MEDS: Donepezil HCl 10 MG TAB PO SCH (21:05)
[2019-07-02] MEDS: Aggrenox 200-25mg CAP PO SCH (21:05)
[2019-07-02] MEDS: Rosuvastatin 20 MG TAB PO SCH (21:05)
[2019-07-03] MEDS: HumaLOG 300 UNITS/3 ML VIAL SC PRN ×3 (06:41→17:05)
--- NOTE | 2019-07-03 08:07 | PDOC.HOSPP ---
- Subjective Encounter Date: 07/03/19 Encounter Time: 08:05 Subjective: walking unassisted, dysarthria improved - Objective Vital Signs & Weight: Vital Signs (12 hours) Temp Pulse Resp BP Pulse Ox 07/03/19 07:10 97.5 F L 70 16 137/80 95 07/03/19 03:34 97.7 F 77 16 143/81 H 95 07/02/19 23:26 98.3 F 76 18 152/108 H 94 L Weight Weight 177 lb 4.8 oz Result Diagrams: 07/02/19 04:31 07/02/19 04:31 Additional Labs: Accuchecks 07/03/19 07/02/19 07/02/19 05:39 19:45 16:44 POC Glucose 184 H 297 H 248 H 07/02/19 10:40 POC Glucose 202 H Hospitalist ROS - Medication Medications: Active Medications Generic Name Dose Route Start Last Admin Trade Name Freq PRN Reason Stop Dose Admin Bupropion HCl 150 mg 07/01/19 21:00 07/02/19 21:05 Wellbutrin PO 150 mg BID JOSE RAFAEL Administration Dipyridamole/Aspirin 1 cap 07/02/19 21:00 07/02/19 21:05 Aggrenox PO 1 cap BID JOSE RAFAEL Administration Donepezil HCl 10 mg 07/01/19 21:00 07/02/19 21:05 Aricept PO 10 mg HS JOSE RAFAEL Administration Enoxaparin Sodium 40 mg 07/02/19 09:00 07/02/19 08:32 Lovenox SC 40 mg 0900 JOSE RAFAEL Administration Insulin Human Lispro 0 units 07/01/19 15:59 07/03/19 06:41 Humalog SC 2 unit .MILD SLIDING SCALE PRN Administration Mild Correctional Scale Insulin Human Lispro 0 units 07/01/19 15:59 07/02/19 21:06 Humalog SC 3 unit .BEDTIME SLIDING SC PRN Administration Bedtime Correctional Scale Isosorbide Mononitrate 30 mg 07/02/19 09:00 07/02/19 08:30 Imdur Er PO 30 mg DAILY JOSE RAFAEL Administration Metoprolol Succinate 100 mg 07/02/19 09:00 07/02/19 08:32 Toprol Xl PO 100 mg DAILY JOSE RAFAEL Administration Pantoprazole Sodium 40 mg 07/02/19 09:00 07/02/19 08:32 Protonix PO 40 mg DAILY JOSE RAFAEL Administration Ranolazine 500 mg 07/01/19 21:00 07/02/19 21:05 Ranexa PO 500 mg BID JOSE RAFAEL Administration Rosuvastatin Calcium 40 mg 07/01/19 21:00 07/02/19 21:05 Crestor PO 40 mg HS JOSE RAFAEL Administration Venlafaxine HCl 112.5 mg 07/02/19 09:00 07/02/19 09:34 Effexor Xr PO 112.5 mg DAILY JOSE RAFAEL Administration - Exam General Appearance: awake alert Neck: no JVD Heart: RRR, no murmur Respiratory: CTAB Gastrointestinal: soft, normal bowel sounds Extremities: no edema Neurological: cranial nerve grossly intact, no focal deficits Hosp A/P (1) CVA (cerebral vascular accident) Code(s): I63.9 - CEREBRAL INFARCTION, UNSPECIFIED Status: Acute Qualifiers: CVA mechanism: unspecified Qualified Code(s): I63.9 - Cerebral infarction, unspecified (2) CAD (coronary artery disease) Code(s): I25.10 - ATHSCL HEART DISEASE OF [place] CORONARY ARTERY W/O ANG PCTRS Status: Chronic Qualifiers: Coronary Disease-Associated Artery/Lesion type: [place] artery [place] vs. transplanted heart: [place] heart Associated angina: without angina Qualified Code(s): I25.10 - Atherosclerotic heart disease of [place] coronary artery without angina pectoris (3) DM type 2 (diabetes mellitus, type 2) Status: Acute Qualifiers: Diabetes mellitus snf insulin use: with snf use Diabetes mellitus complication status: with neurologic complications (4) HTN (hypertension) Code(s): I10 - ESSENTIAL (PRIMARY) HYPERTENSION Status: Chronic Qualifiers: Hypertension type: essential hypertension Qualified Code(s): I10 - Essential (primary) hypertension (5) Dyslipidemia Code(s): E78.5 - HYPERLIPIDEMIA, UNSPECIFIED Status: Chronic - Plan cont antiplatelett tx cont statin cont PT awaeit neuro consult
[2019-07-03] MEDS: Aggrenox 200-25mg CAP PO SCH (09:13)
[2019-07-03] MEDS: Enoxaparin Sodium 40 MG/0.4 ML SYRINGE SC SCH (09:14)
[2019-07-03] MEDS: buPROPion 75 MG TAB PO SCH (09:14)
[2019-07-03] MEDS: Isosorbide Mononitrate (ER) 30 MG TAB PO SCH (09:14)
[2019-07-03] MEDS: Venlafaxine XR 37.5 MG CAP PO SCH (09:15)
[2019-07-03 15:53] VITALS: BP 126/87; TEMP 97.4
--- NOTE | 2019-07-03 22:38 | CON ---
DATE OF CONSULTATION: 07/03/2019 CONSULTING PHYSICIAN: Hospitalist Service. IMPRESSION: 1. Multifocal tiny infarcts in the right MCA territory, likely secondary to a thromboembolic event. 2. Aspirin and Plavix failure. PLAN: 1. Aggrenox 1 twice a day. 2. Continue statin. HISTORY OF PRESENT ILLNESS: Mr. Abel is a 73-year-old gentleman, who presented with dysarthria and some left-sided weakness. Initial CT of the head and CT angiogram were both unremarkable. Echocardiogram showed a normal ejection fraction of 60% to 65%. His lab work was unremarkable other than cholesterol ratio of 5.4. MRI confirms some tiny areas of hemorrhage within the right MCA territory. PAST MEDICAL HISTORY: Coronary artery disease, diabetes, hypertension, hyperlipidemia, minor memory difficulties. ALLERGIES: NONE REPORTED. SOCIAL HISTORY: No tobacco use. FAMILY HISTORY: Noncontributory. REVIEW OF SYSTEMS: Ten-system review of systems is otherwise negative. PHYSICAL EXAMINATION: VITAL SIGNS: Blood pressure 162/95, pulse 66, respirations 16. HEENT: Pupils equal and reactive. Conjunctivae clear. Oropharynx clear. NECK: Supple. No lymphadenopathy. EXTREMITIES: No cyanosis, clubbing, or edema. NEUROLOGIC: He was alert and cooperative. His speech was moderately dysarthric. There was a slight left facial droop. There was no significant weakness in the extremities. He can walk independently. Sensation is intact. No abnormal movements were seen. LABORATORY STUDIES: EKG showed normal sinus rhythm. SUMMARY: A 73-year-old gentleman with some lacunar infarcts in the right MCA territory. No other vascular abnormalities were identified. He failed aspirin and Plavix. We have started Aggrenox and he seems to be tolerating it. I will follow up with him in the office in two weeks. Job ID: [id number]
--- NOTE | 2019-07-04 09:34 | DIS ---
DATE OF ADMISSION: 07/01/2019 DATE OF DISCHARGE: 07/03/2019 PRIMARY CARE PROVIDER: Justen Arellano MD. DISPOSITION: Discharged home. FINAL DIAGNOSES: Cerebral infarction, hypertension, coronary artery disease, dyslipidemia, diabetes mellitus type 2. DISCHARGE MEDICATIONS: 1. Aggrenox 1 capsule p.o. b.i.d. 2. Gemfibrozil 600 mg p.o. b.i.d. 3. Bupropion 150 mg twice a day. 4. Amaryl 4 mg a day. 5. Imdur 60 mg a day. 6. Venlafaxine 37.53 a day. 7. Metoprolol 100 mg at bedtime. 8. Omeprazole 40 mg a day. 9. Crestor 10 mg a day. 10. Aricept 10 mg a day. 11. Ranolazine 500 mg twice a day. 12. Levothyroxine 75 mcg a day. 13. Insulin degludec 36 units a day. ALLERGIES: NO KNOWN ALLERGIES. CODE STATUS: Full. DIET: Diabetic. PENDING AT TIME OF DISCHARGE: Nothing. CONSULTATIONS: Dr. Chidi Booker, Neurology. PROCEDURES: None. HOSPITAL COURSE: Admitted to the Hospitalist Service through the emergency room with signs and symptoms of a stroke. He had left-sided weakness, some dysarthria, word-finding, is admitted to the hospital, put on aspirin, statin. His amlodipine, losartan and Coreg were held. PT/OT was involved. Brain CT, no acute intracranial findings. CT [place] angio, atherosclerosis with no high-grade stenosis. MRI, small and tiny acute infarctions in the right middle cerebral artery territory. Echocardiogram, EF 50% to 55%. The patient improved dramatically during his hospital stay. He is now intact neurologically. Speech has returned. He is being discharged on the aforementioned medications. He was put on Aggrenox in place of aspirin and Plavix by Dr. Booker. The aforementioned medicines were held, amlodipine, Coreg as he is on metoprolol and ARB. He is being discharged to be followed up in 3 days by his primary care provider. Job ID: [id number]
== END 2019-07-03 18:52 | disposition home or self-care (01) | DRG 65 ==
LOC: ERS 13:56 → 2SE 15:07 → OBSVTOIN 15:07
PROVIDERS: ADMIT Family Medicine; ATTEND Family Medicine
PROC: B020ZZZ Computerized Tomography (CT Scan) of Brain (ICD-10-PCS; 2019-07-01)
PROC: B030ZZZ Magnetic Resonance Imaging (MRI) of Brain (ICD-10-PCS; principal; 2019-07-02)
DX: I63.511 Cerebral infarction due to unspecified occlusion or stenosis of right middle cerebral artery (principal); G81.94 Hemiplegia, unspecified affecting left nondominant side; I25.10 Atherosclerotic heart disease of native coronary artery without angina pectoris; R47.01 Aphasia; E11.9 Type 2 diabetes mellitus without complications; I10 Essential (primary) hypertension; F03.90 Unspecified dementia, unspecified severity, without behavioral disturbance, psychotic disturbance, mood disturbance, and anxiety; R29.810 Facial weakness; E78.5 Hyperlipidemia, unspecified; R40.2412 Glasgow coma scale score 13-15, at arrival to emergency department; F17.210 Nicotine dependence, cigarettes, uncomplicated; R29.707 NIHSS score 7; R47.1 Dysarthria and anarthria; M19.90 Unspecified osteoarthritis, unspecified site; K21.9 Gastro-esophageal reflux disease without esophagitis; Z90.49 Acquired absence of other specified parts of digestive tract; Z87.891 Personal history of nicotine dependence; Z95.1 Presence of aortocoronary bypass graft; Z79.82 Long term (current) use of aspirin; Z79.899 Other long term (current) drug therapy; Z86.718 Personal history of other venous thrombosis and embolism; Z86.73 Personal history of transient ischemic attack (TIA), and cerebral infarction without residual deficits; Z95.5 Presence of coronary angioplasty implant and graft
CPT/HCPCS: 36415; 36416; 70450; 70496; 70498; 70551; 71045; 80048; 80053; 80061; 82550; 84484; 85025; 85610; 85730; 86850; 86900; 86901; 93005; 93306; J1650; Q9967

== ENCOUNTER 2020-12-31 14:19 | Outpatient (CLI) | payer MEDICARE ==
[~2020-12-31 14:19] MED LIST: Magnevist 469MG/ML 20 ML VIAL ONE
== END 2020-12-31 14:20 | disposition home or self-care (01) ==
LOC: BICMRI 14:19
PROVIDERS: ATTEND Psychiatry & Neurology Neurology
DX: G30.9 Alzheimer's disease, unspecified (principal); G93.89 Other specified disorders of brain; G31.1 Senile degeneration of brain, not elsewhere classified
CPT/HCPCS: 70553; 82565; A9579

== ENCOUNTER 2021-03-12 12:10 | Inpatient (IN) | payer MEDICARE ==
[2021-03-12 12:49] LABS: #Eosinphils 0.1 thou/uL (0.0-0.7); #Lymphocytes 1.6 thou/uL (1.20-3.40); #Monocytes 0.7 thou/uL (0.11-0.59); #Neutrophils 7.1 thou/uL (1.40-6.50); %Basophils 0.4 % (0.0-1.0); %Eosinophils 0.8 % (0.0-10.0); %Lymphocytes 16.6 % (21.0-51.0); %Monocytes 7.2 % (0.0-10.0); Mean Corpuscular HGB CONC 34.4 g/dL (32.0-36.0); Mean Corpuscular Hemoglobin 29.4 pg (27.0-31.0); Mean Corpuscular Volume 85.6 fL (78.0-98.0); Mean Platelet Volume 8.6 fL (7.4-10.4); Platelet Count 310 thou/uL (130-400); RBC Distribution Width 12.3 % (11.5-14.5); Red Blood Cell (RBC) Count 4.76 mill/uL (4.70-6.10); White Blood Cell (WBC) Count 9.4 thou/uL (4.8-10.8)
[2021-03-12 13:05] LABS: ALT (SGPT) Less than 7 U/L (8-55); AST (SGOT) 12 U/L (5-34); Albumin 3.5 g/dL (3.4-4.8); Alkaline Phosphatase 136 U/L (40-110); Anion Gap 14 mmol/L (10-20); BUN (Urea Nitrogen) 18 mg/dL (8.4-25.7); Bilirubin, Total 0.7 mg/dL (0.2-1.2); Calc. Creatinine Clearance 0 mL/min (70-130); Calcium 9.2 mg/dL (7.8-10.44); Carbon Dioxide 26 mmol/L (23-31); Chloride 97 mmol/L (98-107); Globulin 2.5 g/dL (2.4-3.5); Glucose 222 mg/dL (83-110); Sodium 133 mmol/L (136-145)
[2021-03-12] MEDS ORDERED: Acetaminophen 650 MG Suppository PR PRN (18:37)
[2021-03-12] MEDS ORDERED: Ondansetron ODT 4 MG TAB PO PRN (18:37)
[2021-03-12] MEDS ORDERED: Acetaminophen 325 MG TAB PO PRN (18:37)
[2021-03-12] MEDS ORDERED: hydrALAZINE 20 MG/ML VIAL SLOW IVP PRN (18:37)
[2021-03-12] MEDS ORDERED: Ondansetron PF 4 MG/2 ML Vial IVP PRN (18:37)
[2021-03-12] MEDS ORDERED: Dextrose 5% in Water 1,000 ML IV PRN (18:58)
[2021-03-12] MEDS ORDERED: Dextrose 50% Abboject 50 ML SYRINGE SLOW IVP PRN (18:58)
[2021-03-12] MEDS ORDERED: Insulin Regular 300 UNITS/3 ML VIAL SC PRN ×2 (18:58)
[2021-03-12] MEDS ORDERED: Aspirin 325 mg Enteric Coated Tablet PO SCH (19:00)
[2021-03-12 19:18] LABS: Hemoglobin A1c 6.5 % (4.0-6.0)
[2021-03-12 19:44] LABS: SARS-CoV-2 NAA Rapid Test Not Detected (NotDetected)
[2021-03-12] MEDS: Atorvastatin Calcium 40 MG TAB PO SCH (21:42)
[2021-03-12 21:48] VITALS: BMI 26.9
[2021-03-13 05:18] LABS: #Eosinphils 0.1 thou/uL (0.0-0.7); #Lymphocytes 1.8 thou/uL (1.20-3.40); #Neutrophils 7.1 thou/uL (1.40-6.50); %Basophils 0.2 % (0.0-1.0); %Eosinophils 0.9 % (0.0-10.0); %Monocytes 10.1 % (0.0-10.0); %Neutrophils 70.8 % (42.0-75.0); Hemoglobin 14.2 g/dL (14.0-18.0); Mean Corpuscular HGB CONC 34.2 g/dL (32.0-36.0); Mean Corpuscular Hemoglobin 29.1 pg (27.0-31.0); Mean Corpuscular Volume 85.2 fL (78.0-98.0); Mean Platelet Volume 8.5 fL (7.4-10.4); Platelet Count 301 thou/uL (130-400); RBC Distribution Width 12.3 % (11.5-14.5); Red Blood Cell (RBC) Count 4.88 mill/uL (4.70-6.10)
[2021-03-13 05:41] LABS: Anion Gap 14 mmol/L (10-20); BUN (Urea Nitrogen) 19 mg/dL (8.4-25.7); Calc. Creatinine Clearance 49 mL/min (70-130); Calcium 9.6 mg/dL (7.8-10.44); Carbon Dioxide 23 mmol/L (23-31); Cardiac Risk 6.5 (Less than 4.5); Chloride 101 mmol/L (98-107); Cholesterol 200 mg/dl (< 200 Desired); Glucose 254 mg/dL (83-110); HDL Cholesterol 31 mg/dL (>60 Neg Risk); LDL Cholesterol, Calculated 146 mg/dL; Sodium 134 mmol/L (136-145); Triglycerides 113 mg/dL (Less than 150)
[2021-03-13] MEDS: Sodium Chloride 0.9% 1,000 ML IV SCH (09:16)
[2021-03-13] MEDS: Aspirin 325 mg Enteric Coated Tablet PO SCH (09:16)
[2021-03-13] MEDS: Atorvastatin Calcium 40 MG TAB PO SCH (21:07)
[2021-03-14] MEDS ORDERED: Benzonatate 100 MG CAP PO SCH (00:03)
[2021-03-14] MEDS: Aspirin 325 mg Enteric Coated Tablet PO SCH (08:32)
[2021-03-14 08:48] LABS: #Eosinphils 0.2 thou/uL (0.0-0.7); #Lymphocytes 2.2 thou/uL (1.20-3.40); #Neutrophils 5.7 thou/uL (1.40-6.50); %Basophils 0.2 % (0.0-1.0); %Eosinophils 2.5 % (0.0-10.0); %Monocytes 10.6 % (0.0-10.0); %Neutrophils 62.8 % (42.0-75.0); Hemoglobin 13.7 g/dL (14.0-18.0); Mean Corpuscular HGB CONC 33.9 g/dL (32.0-36.0); Mean Corpuscular Hemoglobin 29.3 pg (27.0-31.0); Mean Corpuscular Volume 86.4 fL (78.0-98.0); Mean Platelet Volume 8.3 fL (7.4-10.4); Platelet Count 303 thou/uL (130-400); RBC Distribution Width 12.2 % (11.5-14.5); Red Blood Cell (RBC) Count 4.67 mill/uL (4.70-6.10); White Blood Cell (WBC) Count 9.1 thou/uL (4.8-10.8)
[2021-03-14 09:07] LABS: Anion Gap 13 mmol/L (10-20); BUN (Urea Nitrogen) 14 mg/dL (8.4-25.7); Calc. Creatinine Clearance 63 mL/min (70-130); Calcium 9.6 mg/dL (7.8-10.44); Carbon Dioxide 27 mmol/L (23-31); Chloride 104 mmol/L (98-107); Glucose 87 mg/dL (83-110); Sodium 140 mmol/L (136-145)
[2021-03-14] MEDS: Sodium Chloride 0.9% 1,000 ML IV SCH ×2 (10:27→10:28)
[2021-03-14] MEDS: Aggrenox 200-25mg CAP PO SCH ×2 (10:27→21:37)
[2021-03-14] MEDS ORDERED: Lantus 1000 UNITS/10 ML VIAL SC SCH (21:00)
[2021-03-14] MEDS: Atorvastatin Calcium 40 MG TAB PO SCH (21:37)
[2021-03-14] MEDS: Donepezil HCl 10 MG TAB PO SCH (21:37)
[2021-03-15 04:46] LABS: #Eosinphils 0.2 thou/uL (0.0-0.7); #Lymphocytes 2.3 thou/uL (1.20-3.40); #Monocytes 1.5 thou/uL (0.11-0.59); #Neutrophils 10.5 thou/uL (1.40-6.50); %Basophils 0.2 % (0.0-1.0); %Eosinophils 1.7 % (0.0-10.0); %Lymphocytes 15.8 % (21.0-51.0); %Monocytes 10.1 % (0.0-10.0); %Neutrophils 72.2 % (42.0-75.0); Hemoglobin 12.5 g/dL (14.0-18.0); Mean Corpuscular HGB CONC 34.6 g/dL (32.0-36.0); Mean Corpuscular Hemoglobin 29.9 pg (27.0-31.0); Mean Corpuscular Volume 86.4 fL (78.0-98.0); Mean Platelet Volume 8.1 fL (7.4-10.4); Platelet Count 361 thou/uL (130-400); RBC Distribution Width 12.2 % (11.5-14.5); Red Blood Cell (RBC) Count 4.18 mill/uL (4.70-6.10); White Blood Cell (WBC) Count 14.5 thou/uL (4.8-10.8)
[2021-03-15 05:17] LABS: Anion Gap 15 mmol/L (10-20); BUN (Urea Nitrogen) 20 mg/dL (8.4-25.7); Calc. Creatinine Clearance 41 mL/min (70-130); Calcium 9.4 mg/dL (7.8-10.44); Carbon Dioxide 23 mmol/L (23-31); Chloride 105 mmol/L (98-107); Glucose 125 mg/dL (83-110); Potassium 3.9 mmol/L (3.5-5.1); Sodium 139 mmol/L (136-145)
[2021-03-15] MEDS: Levothyroxine Sodium 75 MCG TAB PO SCH (06:40)
[2021-03-15] MEDS ORDERED: Lantus 1000 UNITS/10 ML VIAL SC SCH (09:00)
[2021-03-15] MEDS: Aggrenox 200-25mg CAP PO SCH ×2 (09:45→21:37)
[2021-03-15] MEDS: Lantus 1000 UNITS/10 ML VIAL SC SCH ×2 (09:51→21:37)
[2021-03-15] MEDS ORDERED: Sodium Chloride 0.9% 1,000 ML IV SCH ×2 (12:00)
[2021-03-15 12:45] LABS: #Eosinphils 0.2 thou/uL (0.0-0.7); #Lymphocytes 1.5 thou/uL (1.20-3.40); #Monocytes 0.9 thou/uL (0.11-0.59); %Basophils 0.2 % (0.0-1.0); %Eosinophils 1.8 % (0.0-10.0); %Lymphocytes 15.4 % (21.0-51.0); %Monocytes 9.3 % (0.0-10.0); %Neutrophils 73.3 % (42.0-75.0); Hemoglobin 12.6 g/dL (14.0-18.0); Mean Corpuscular HGB CONC 34.7 g/dL (32.0-36.0); Mean Corpuscular Hemoglobin 29.6 pg (27.0-31.0); Mean Corpuscular Volume 85.4 fL (78.0-98.0); Platelet Count 327 thou/uL (130-400); RBC Distribution Width 12.1 % (11.5-14.5); Red Blood Cell (RBC) Count 4.26 mill/uL (4.70-6.10); White Blood Cell (WBC) Count 9.5 thou/uL (4.8-10.8)
[2021-03-15 18:18] LABS: Bilirubin Negative (Negative); Blood, Urine Negative (Negative); Glucose, Urine (Dipstick) Normal (Negative); Ketone, Urine Trace mg/dL (Negative); Leukocyte 250 Leu/uL (Negative); Nitrite Negative (Negative); Protein, Urine (Dipstick) 50 mg/dL (Neg-Trace); Specific Gravity, Urine 1.024 (1.002-1.036)
[2021-03-15 18:28] LABS: RBC/HPF 0-3 HPF (0-3)
[2021-03-15 18:29] LABS: Bacteria/HPF Rare-Few HPF (None Seen); Clarity Cloudy (Clear); Squamous Epithelial 0-3 HPF (0-3)
[2021-03-15 18:30] LABS: Urine Culture Reflex Yes Yes
[2021-03-15] MEDS: Donepezil HCl 10 MG TAB PO SCH (21:37)
[2021-03-15] MEDS: Atorvastatin Calcium 40 MG TAB PO SCH (21:37)
[2021-03-16 05:56] LABS: #Eosinphils 0.3 thou/uL (0.0-0.7); #Lymphocytes 1.3 thou/uL (1.20-3.40); #Monocytes 0.7 thou/uL (0.11-0.59); #Neutrophils 6.8 thou/uL (1.40-6.50); %Basophils 0.5 % (0.0-1.0); %Eosinophils 2.8 % (0.0-10.0); %Lymphocytes 14.3 % (21.0-51.0); %Monocytes 7.8 % (0.0-10.0); %Neutrophils 74.7 % (42.0-75.0); Hemoglobin 11.8 g/dL (14.0-18.0); Mean Corpuscular HGB CONC 33.5 g/dL (32.0-36.0); Mean Corpuscular Hemoglobin 28.6 pg (27.0-31.0); Mean Corpuscular Volume 85.4 fL (78.0-98.0); Platelet Count 286 thou/uL (130-400); RBC Distribution Width 12.1 % (11.5-14.5); Red Blood Cell (RBC) Count 4.12 mill/uL (4.70-6.10); White Blood Cell (WBC) Count 9.1 thou/uL (4.8-10.8)
[2021-03-16] MEDS: Levothyroxine Sodium 75 MCG TAB PO SCH (06:07)
[2021-03-16 06:12] LABS: Anion Gap 13 mmol/L (10-20); BUN (Urea Nitrogen) 26 mg/dL (8.4-25.7); Calc. Creatinine Clearance 45 mL/min (70-130); Calcium 8.7 mg/dL (7.8-10.44); Carbon Dioxide 22 mmol/L (23-31); Chloride 105 mmol/L (98-107); Glucose 95 mg/dL (83-110); Potassium 3.8 mmol/L (3.5-5.1); Sodium 136 mmol/L (136-145)
[2021-03-16] MEDS ORDERED: Sodium Chloride 0.9% 1,000 ML IV SCH (07:15)
[2021-03-16] MEDS: Aggrenox 200-25mg CAP PO SCH ×2 (09:04→22:20)
[2021-03-16] MEDS: Lantus 1000 UNITS/10 ML VIAL SC SCH ×2 (09:04→22:00)
[2021-03-16] MEDS: Benzonatate 100 MG CAP PO PRN (11:13)
[2021-03-16] MEDS: Atorvastatin Calcium 40 MG TAB PO SCH (22:19)
[2021-03-16] MEDS: Donepezil HCl 10 MG TAB PO SCH (22:20)
[2021-03-17 05:58] LABS: #Eosinphils 0.2 thou/uL (0.0-0.7); #Lymphocytes 1.3 thou/uL (1.20-3.40); #Monocytes 0.6 thou/uL (0.11-0.59); #Neutrophils 4.8 thou/uL (1.40-6.50); %Basophils 0.1 % (0.0-1.0); %Eosinophils 3.4 % (0.0-10.0); %Lymphocytes 18.7 % (21.0-51.0); %Monocytes 8.7 % (0.0-10.0); %Neutrophils 69.1 % (42.0-75.0); Hemoglobin 11.9 g/dL (14.0-18.0); Mean Corpuscular HGB CONC 34.7 g/dL (32.0-36.0); Mean Corpuscular Hemoglobin 29.6 pg (27.0-31.0); Mean Corpuscular Volume 85.2 fL (78.0-98.0); Mean Platelet Volume 7.4 fL (7.4-10.4); Platelet Count 282 thou/uL (130-400); Red Blood Cell (RBC) Count 4.02 mill/uL (4.70-6.10); White Blood Cell (WBC) Count 6.9 thou/uL (4.8-10.8)
[2021-03-17 06:16] LABS: Anion Gap 16 mmol/L (10-20); BUN (Urea Nitrogen) 17 mg/dL (8.4-25.7); Calc. Creatinine Clearance 63 mL/min (70-130); Calcium 8.7 mg/dL (7.8-10.44); Carbon Dioxide 18 mmol/L (23-31); Chloride 106 mmol/L (98-107); Glucose 68 mg/dL (83-110); Potassium 3.5 mmol/L (3.5-5.1); Sodium 136 mmol/L (136-145)
[2021-03-17] MEDS: Levothyroxine Sodium 75 MCG TAB PO SCH (06:33)
[2021-03-17 08:03] LABS: Magnesium 1.5 mg/dL (1.6-2.6)
[2021-03-17] MEDS: Venlafaxine XR 37.5 MG CAP PO SCH (09:00)
[2021-03-17] MEDS ORDERED: Venlafaxine XR 37.5 MG CAP PO SCH (09:00)
[2021-03-17] MEDS: Aggrenox 200-25mg CAP PO SCH ×2 (09:00→21:24)
[2021-03-17] MEDS: Rosuvastatin 10 MG TAB PO SCH (09:00)
[2021-03-17] MEDS: Gemfibrozil 600 MG TAB PO SCH ×2 (09:00→21:24)
[2021-03-17] MEDS ORDERED: buPROPion 75 MG TAB PO SCH (09:00)
[2021-03-17] MEDS: buPROPion 75 MG TAB PO SCH ×2 (09:00→21:24)
[2021-03-17] MEDS ORDERED: Magnesium 2 GM/50 ML 2 GM in Premix Bag 1 BAG IVPB SCH (10:00)
[2021-03-17] MEDS: Donepezil HCl 10 MG TAB PO SCH (21:24)
[2021-03-17] MEDS: Benzonatate 100 MG CAP PO PRN (23:10)
[2021-03-18 05:39] LABS: #Eosinphils 0.3 thou/uL (0.0-0.7); #Lymphocytes 1.6 thou/uL (1.20-3.40); #Monocytes 0.7 thou/uL (0.11-0.59); #Neutrophils 4.8 thou/uL (1.40-6.50); %Basophils 0.4 % (0.0-1.0); %Eosinophils 3.7 % (0.0-10.0); %Lymphocytes 21.6 % (21.0-51.0); %Monocytes 9.2 % (0.0-10.0); %Neutrophils 65.1 % (42.0-75.0); Hemoglobin 11.5 g/dL (14.0-18.0); Mean Corpuscular HGB CONC 34.3 g/dL (32.0-36.0); Mean Corpuscular Hemoglobin 29.3 pg (27.0-31.0); Mean Corpuscular Volume 85.4 fL (78.0-98.0); Mean Platelet Volume 7.8 fL (7.4-10.4); Platelet Count 273 thou/uL (130-400); RBC Distribution Width 12.2 % (11.5-14.5); Red Blood Cell (RBC) Count 3.92 mill/uL (4.70-6.10); White Blood Cell (WBC) Count 7.4 thou/uL (4.8-10.8)
[2021-03-18 06:05] LABS: Anion Gap 15 mmol/L (10-20); BUN (Urea Nitrogen) 16 mg/dL (8.4-25.7); Calc. Creatinine Clearance 65 mL/min (70-130); Calcium 8.7 mg/dL (7.8-10.44); Carbon Dioxide 22 mmol/L (23-31); Chloride 104 mmol/L (98-107); Glucose 92 mg/dL (83-110); Potassium 3.6 mmol/L (3.5-5.1); Sodium 137 mmol/L (136-145)
[2021-03-18] MEDS: Levothyroxine Sodium 75 MCG TAB PO SCH (06:32)
[2021-03-18] MEDS: buPROPion 75 MG TAB PO SCH (08:21)
[2021-03-18] MEDS: Aggrenox 200-25mg CAP PO SCH (08:21)
[2021-03-18] MEDS: Rosuvastatin 10 MG TAB PO SCH (08:21)
[2021-03-18] MEDS: Gemfibrozil 600 MG TAB PO SCH (08:22)
[2021-03-18] MEDS: Venlafaxine XR 37.5 MG CAP PO SCH (08:27)
[2021-03-18 11:54] VITALS: BP 138/71; TEMP 97.7
== END 2021-03-18 16:50 | disposition home or self-care (01) | DRG 65 ==
LOC: ERS 12:10 → ERHOLD 14:44 → NEURO 21:14 → OBSVTOIN 03-13 11:49
PROVIDERS: ADMIT Hospitalist; ATTEND Internal Medicine
DX: I63.81 Other cerebral infarction due to occlusion or stenosis of small artery (principal); N17.9 Acute kidney failure, unspecified; E87.1 Hypo-osmolality and hyponatremia; Z20.822 Contact with and (suspected) exposure to COVID-19; E78.5 Hyperlipidemia, unspecified; F03.90 Unspecified dementia, unspecified severity, without behavioral disturbance, psychotic disturbance, mood disturbance, and anxiety; I25.10 Atherosclerotic heart disease of native coronary artery without angina pectoris; J06.9 Acute upper respiratory infection, unspecified; R29.701 NIHSS score 1; R47.1 Dysarthria and anarthria; G93.89 Other specified disorders of brain; N18.30 Chronic kidney disease, stage 3 unspecified; I12.9 Hypertensive chronic kidney disease with stage 1 through stage 4 chronic kidney disease, or unspecified chronic kidney disease; Z79.84 Long term (current) use of oral hypoglycemic drugs; Z79.4 Long term (current) use of insulin; Z79.82 Long term (current) use of aspirin; Z79.890 Hormone replacement therapy; Z79.899 Other long term (current) drug therapy; Z95.1 Presence of aortocoronary bypass graft; Z95.5 Presence of coronary angioplasty implant and graft; E11.22 Type 2 diabetes mellitus with diabetic chronic kidney disease; F41.9 Anxiety disorder, unspecified; F32.A Depression, unspecified; D72.829 Elevated white blood cell count, unspecified; I95.9 Hypotension, unspecified
CPT/HCPCS: 36415; 36416; 70496; 70498; 70551; 71045; 76770; 80048; 80053; 80061; 81001; 83036; 83605; 83735; 84443; 84484; 85025; 87040; 87086; 93005; 93306; 95816; 95819; 95957; G0378; J1815; J3475; U0002

== ENCOUNTER 2021-03-27 11:44 | Inpatient (IN) | payer MEDICARE ==
[2021-03-27 12:55] LABS: #Eosinphils 0.1 thou/uL (0.0-0.7); #Lymphocytes 1.6 thou/uL (1.20-3.40); #Monocytes 0.7 thou/uL (0.11-0.59); #Neutrophils 7.3 thou/uL (1.40-6.50); %Basophils 0.5 % (0.0-1.0); %Eosinophils 1.1 % (0.0-10.0); %Lymphocytes 16.5 % (21.0-51.0); %Monocytes 7.4 % (0.0-10.0); %Neutrophils 74.4 % (42.0-75.0); Hemoglobin 13.8 g/dL (14.0-18.0); Mean Corpuscular HGB CONC 34.2 g/dL (32.0-36.0); Mean Corpuscular Volume 84.8 fL (78.0-98.0); Mean Platelet Volume 7.5 fL (7.4-10.4); Platelet Count 474 thou/uL (130-400); Red Blood Cell (RBC) Count 4.75 mill/uL (4.70-6.10); White Blood Cell (WBC) Count 9.8 thou/uL (4.8-10.8)
[2021-03-27 13:15] LABS: ALT (SGPT) 7 U/L (8-55); AST (SGOT) 17 U/L (5-34); Albumin 3.5 g/dL (3.4-4.8); Alkaline Phosphatase 120 U/L (40-110); Anion Gap 15 mmol/L (10-20); BUN (Urea Nitrogen) 11 mg/dL (8.4-25.7); Bilirubin, Total 0.5 mg/dL (0.2-1.2); Calc. Creatinine Clearance 0 mL/min (70-130); Calcium 9.5 mg/dL (7.8-10.44); Carbon Dioxide 22 mmol/L (23-31); Chloride 102 mmol/L (98-107); Globulin 3.4 g/dL (2.4-3.5); Glucose 147 mg/dL (83-110); Potassium 3.5 mmol/L (3.5-5.1); Protein, Total 6.9 g/dL (5.8-8.1); Sodium 135 mmol/L (136-145)
[2021-03-27] MEDS ORDERED: Enoxaparin Sodium 80 MG/0.8 ML SYRINGE ONE (13:35)
[2021-03-27] MEDS ORDERED: Nitroglycerin 0.4 MG TAB 1 EACH ONE (13:35)
[2021-03-27] MEDS ORDERED: Aspirin Chewable 81 MG TAB ONE (13:35)
[2021-03-27 13:48] LABS: CKMB 2.8 ng/mL (0-6.6)
[2021-03-27] MEDS ORDERED: Ondansetron ODT 4 MG TAB PO PRN (14:31)
[2021-03-27] MEDS ORDERED: Acetaminophen 650 MG Suppository PR PRN (14:31)
[2021-03-27] MEDS ORDERED: Ondansetron PF 4 MG/2 ML Vial IVP PRN (14:31)
[2021-03-27] MEDS ORDERED: Acetaminophen 325 MG TAB PO PRN (14:31)
[2021-03-27] MEDS ORDERED: Nitroglycerin 0.4 MG TAB (25 Tab Bottle) SL PRN ×2 (14:35→14:36)
[2021-03-27 15:20] LABS: Troponin I 1.006 ng/mL (< 0.028)
[2021-03-27 15:53] VITALS: BMI 25.4
[2021-03-27 19:10] LABS: Troponin I 1.068 ng/mL (< 0.028)
[2021-03-27] MEDS: Donepezil HCl 10 MG TAB PO SCH (20:40)
[2021-03-27] MEDS ORDERED: Gemfibrozil 600 MG TAB PO SCH (21:00)
[2021-03-27] MEDS: buPROPion 75 MG TAB PO SCH (21:40)
[2021-03-28 04:52] LABS: #Eosinphils 0.2 thou/uL (0.0-0.7); #Lymphocytes 2.5 thou/uL (1.20-3.40); #Monocytes 0.8 thou/uL (0.11-0.59); #Neutrophils 4.6 thou/uL (1.40-6.50); %Basophils 0.5 % (0.0-1.0); %Eosinophils 2.4 % (0.0-10.0); %Lymphocytes 30.5 % (21.0-51.0); %Monocytes 9.9 % (0.0-10.0); %Neutrophils 56.7 % (42.0-75.0); Hemoglobin 12.4 g/dL (14.0-18.0); Mean Corpuscular HGB CONC 33.7 g/dL (32.0-36.0); Mean Corpuscular Hemoglobin 28.4 pg (27.0-31.0); Mean Corpuscular Volume 84.3 fL (78.0-98.0); Mean Platelet Volume 7.7 fL (7.4-10.4); Platelet Count 403 thou/uL (130-400); Red Blood Cell (RBC) Count 4.37 mill/uL (4.70-6.10); White Blood Cell (WBC) Count 8.2 thou/uL (4.8-10.8)
[2021-03-28 05:13] LABS: Anion Gap 12 mmol/L (10-20); BUN (Urea Nitrogen) 16 mg/dL (8.4-25.7); Calc. Creatinine Clearance 60 mL/min (70-130); Calcium 9.1 mg/dL (7.8-10.44); Carbon Dioxide 24 mmol/L (23-31); Cardiac Risk 4.7 (Less than 4.5); Chloride 104 mmol/L (98-107); Cholesterol 112 mg/dl (< 200 Desired); Glucose 202 mg/dL (83-110); HDL Cholesterol 24 mg/dL (>60 Neg Risk); LDL Cholesterol, Calculated 68 mg/dL; Potassium 3.6 mmol/L (3.5-5.1); Sodium 136 mmol/L (136-145); Triglycerides 101 mg/dL (Less than 150)
[2021-03-28] MEDS: Levothyroxine Sodium 75 MCG TAB PO SCH (05:54)
[2021-03-28] MEDS ORDERED: Dextrose 5% in Water 1,000 ML IV PRN (07:44)
[2021-03-28] MEDS ORDERED: Insulin Regular 300 UNITS/3 ML VIAL SC PRN (07:44)
[2021-03-28] MEDS ORDERED: Dextrose 50% Abboject 50 ML SYRINGE SLOW IVP PRN (07:44)
[2021-03-28] MEDS ORDERED: Clopidogrel Bisulfate 300 MG TAB PO SCH (08:15)
[2021-03-28] MEDS: buPROPion 75 MG TAB PO SCH ×2 (09:33→21:11)
[2021-03-28] MEDS: Enoxaparin Sodium 80 MG/0.8 ML SYRINGE SC SCH ×2 (09:33→21:10)
[2021-03-28 10:08] LABS: Troponin I 0.995 ng/mL (< 0.028)
[2021-03-28 12:52] LABS: Troponin I 1.027 ng/mL (< 0.028)
[2021-03-28] MEDS ORDERED: Aspirin Chewable 81 MG TAB PO SCH (15:00)
[2021-03-28 15:34] LABS: SARS-CoV-2 PCR by NAA Not Detected (NotDetected)
[2021-03-28] MEDS ORDERED: Atorvastatin Calcium 40 MG TAB PO SCH (21:00)
[2021-03-28] MEDS ORDERED: Rosuvastatin 20 MG TAB PO SCH (21:00)
[2021-03-28] MEDS: Icosapent Ethyl 1 GM CAPSULE PO SCH (21:10)
[2021-03-28] MEDS: Donepezil HCl 10 MG TAB PO SCH (21:11)
[2021-03-29 04:54] LABS: #Basophils 0.1 thou/uL (0.0-0.2); #Eosinphils 0.2 thou/uL (0.0-0.7); #Lymphocytes 2.3 thou/uL (1.20-3.40); #Monocytes 0.7 thou/uL (0.11-0.59); #Neutrophils 4.2 thou/uL (1.40-6.50); %Eosinophils 3.2 % (0.0-10.0); %Lymphocytes 30.5 % (21.0-51.0); %Monocytes 9.4 % (0.0-10.0); %Neutrophils 55.9 % (42.0-75.0); Hemoglobin 12.7 g/dL (14.0-18.0); Mean Corpuscular HGB CONC 34.3 g/dL (32.0-36.0); Mean Corpuscular Hemoglobin 28.9 pg (27.0-31.0); Mean Corpuscular Volume 84.4 fL (78.0-98.0); Mean Platelet Volume 7.8 fL (7.4-10.4); Platelet Count 397 thou/uL (130-400); RBC Distribution Width 12.1 % (11.5-14.5); White Blood Cell (WBC) Count 7.5 thou/uL (4.8-10.8)
[2021-03-29 05:02] LABS: Anion Gap 15 mmol/L (10-20); BUN (Urea Nitrogen) 17 mg/dL (8.4-25.7); Calc. Creatinine Clearance 63 mL/min (70-130); Calcium 9.2 mg/dL (7.8-10.44); Carbon Dioxide 23 mmol/L (23-31); Chloride 105 mmol/L (98-107); Glucose 144 mg/dL (83-110); Potassium 3.6 mmol/L (3.5-5.1); Sodium 139 mmol/L (136-145)
[2021-03-29] MEDS: Levothyroxine Sodium 75 MCG TAB PO SCH (05:49)
[2021-03-29] MEDS ORDERED: Clopidogrel Bisulfate 75 MG TAB PO SCH (09:00)
[2021-03-29] MEDS: Icosapent Ethyl 1 GM CAPSULE PO SCH (09:10)
[2021-03-29] MEDS: buPROPion 75 MG TAB PO SCH (09:10)
[2021-03-29] MEDS: Enoxaparin Sodium 80 MG/0.8 ML SYRINGE SC SCH (09:11)
[2021-03-29 17:24] VITALS: BP 142/79; TEMP 97.9
[2021-04-01] MEDS ORDERED: Carvedilol 3.125 MG TAB PO SCH (17:00)
[2021-04-02] MEDS ORDERED: Lisinopril 2.5 MG TAB PO SCH (09:00)
== END 2021-03-29 19:20 | disposition home or self-care (01) | DRG 281 ==
LOC: ERS 11:44 → 2NO 13:45
PROVIDERS: ADMIT Internal Medicine; ATTEND Hospitalist
DX: I21.4 Non-ST elevation (NSTEMI) myocardial infarction (principal); E44.0 Moderate protein-calorie malnutrition; E11.649 Type 2 diabetes mellitus with hypoglycemia without coma; I10 Essential (primary) hypertension; E78.5 Hyperlipidemia, unspecified; I25.10 Atherosclerotic heart disease of native coronary artery without angina pectoris; F03.90 Unspecified dementia, unspecified severity, without behavioral disturbance, psychotic disturbance, mood disturbance, and anxiety; Z95.1 Presence of aortocoronary bypass graft; Z86.73 Personal history of transient ischemic attack (TIA), and cerebral infarction without residual deficits; Z79.899 Other long term (current) drug therapy; Z79.4 Long term (current) use of insulin; Z79.84 Long term (current) use of oral hypoglycemic drugs; Z79.82 Long term (current) use of aspirin; Z95.5 Presence of coronary angioplasty implant and graft; Z68.25 Body mass index [BMI] 25.0-25.9, adult; Z86.711 Personal history of pulmonary embolism; Z90.79 Acquired absence of other genital organ(s); Z90.89 Acquired absence of other organs; Z90.49 Acquired absence of other specified parts of digestive tract
CPT/HCPCS: 36415; 36416; 70450; 71045; 80048; 80053; 80061; 82553; 84484; 85025; 93005; 96372; J1650; U0003; U0005

== ENCOUNTER 2022-01-06 14:25 | Emergency (ER) | payer MEDICARE, OTHER | END 2022-01-06 16:10 | disposition home or self-care (01) | LOC: ERS 14:25 | DX: S09.90XA Unspecified injury of head, initial encounter (principal); E11.9 Type 2 diabetes mellitus without complications; I10 Essential (primary) hypertension; I25.2 Old myocardial infarction; Z86.73 Personal history of transient ischemic attack (TIA), and cerebral infarction without residual deficits; W18.09XA Striking against other object with subsequent fall, initial encounter | CPT/HCPCS: 70450; 71045; 72125 ==

== ENCOUNTER 2022-03-31 13:06 | Inpatient (IN) | payer OTHER ==
[2022-03-31 14:01] LABS: Actual Bicarbonate (HCO3v) 28 mEq/L (22-28); Base Excess 4.3 mEq/L (-2.0 to +3.0); Calcium, Ionized (venous) 1.03 mmol/L (1.16-1.32); Chloride (VBG) 98 mmol/L (98-106); Potassium (VBG) 2.94 mmol/L (3.70-5.30); Sodium 134.5 mmol/L (133-146); pH (venous) 7.49 (7.32-7.43)
[2022-03-31 14:03] LABS: #Eosinphils 0.1 thou/uL (0.0-0.7); #Lymphocytes 1.7 thou/uL (1.20-3.40); #Monocytes 0.7 thou/uL (0.11-0.59); #Neutrophils 7.2 thou/uL (1.40-6.50); %Basophils 0.5 % (0.0-1.0); %Eosinophils 1.1 % (0.0-10.0); %Lymphocytes 17.7 % (21.0-51.0); %Monocytes 6.9 % (0.0-10.0); %Neutrophils 73.8 % (42.0-75.0); Hemoglobin 13.4 g/dL (14.0-18.0); Mean Corpuscular HGB CONC 34.7 g/dL (32.0-36.0); Mean Corpuscular Hemoglobin 29.4 pg (27.0-31.0); Mean Corpuscular Volume 84.9 fl (78.0-98.0); Mean Platelet Volume 9.2 fL (7.4-10.4); Platelet Count 323 10x3/uL (130-400); Red Blood Cell (RBC) Count 4.54 mill/uL (4.70-6.10); White Blood Cell (WBC) Count 9.7 10x3/uL (4.8-10.8)
[2022-03-31 14:24] LABS: ALT (SGPT) 12 U/L (8-55); AST (SGOT) 23 U/L (5-34); Albumin 3.4 g/dL (3.4-4.8); Alkaline Phosphatase 117 U/L (40-110); Anion Gap 14 mmol/L (10-20); BUN (Urea Nitrogen) 13 mg/dL (8.4-25.7); Bilirubin, Total 0.6 mg/dL (0.2-1.2); Calc. Creatinine Clearance 0 mL/min (70-130); Calcium 8.4 mg/dL (7.8-10.44); Carbon Dioxide 28 mmol/L (23-31); Chloride 98 mmol/L (98-107); Estimated GFR 78; Globulin 2.4 g/dL (2.4-3.5); Glucose 301 mg/dL (83-110); Lipase 28 U/L (8-78); Potassium 3.1 mmol/L (3.5-5.1); Protein, Total 5.8 g/dL (5.8-8.1); Sodium 137 mmol/L (136-145)
[2022-03-31] MEDS ORDERED: Ondansetron PF 4 MG/2 ML Vial IVP PRN (17:21)
[2022-03-31] MEDS ORDERED: Senokot S 8.6-50 MG TAB PO PRN (17:21)
[2022-03-31] MEDS ORDERED: Bisacodyl 5 MG TAB PO PRN (17:21)
[2022-03-31] MEDS ORDERED: Bisacodyl 10 MG SUPP PR PRN (17:21)
[2022-03-31] MEDS ORDERED: Ondansetron ODT 4 MG TAB PO PRN (17:21)
[2022-03-31] MEDS ORDERED: Acetaminophen 650 MG Suppository PR PRN (17:21)
[2022-03-31] MEDS ORDERED: hydrALAZINE 20 MG/ML VIAL SLOW IVP PRN (17:27)
[2022-03-31 17:34] LABS: Bacteria/HPF None Seen HPF (None Seen); Bilirubin Negative (Negative); Blood, Urine Negative (Negative); Clarity Clear (Clear); Glucose, Urine (Dipstick) Greater than 1000 mg/dL (Negative); Ketone, Urine Negative (Negative); Leukocyte Negative Leu/uL (Negative); Nitrite Negative (Negative); Protein, Urine (Dipstick) 30 mg/dL (Neg-Trace); Specific Gravity, Urine 1.028 (1.002-1.036); Squamous Epithelial 0-3 HPF (0-3)
[2022-03-31] MEDS: Atorvastatin Calcium 40 MG TAB PO SCH (21:23)
[2022-03-31] MEDS: Donepezil HCl 10 MG TAB PO SCH (21:23)
[2022-03-31] MEDS: Sodium Chloride 0.9% 1,000 ML IV SCH (21:24)
[2022-04-01] MEDS ORDERED: Dextrose 50% Abboject 50 ML SYRINGE IVP PRN (00:15)
[2022-04-01] MEDS ORDERED: Dextrose 5% in Water 1,000 ML IV PRN (00:15)
[2022-04-01 05:08] LABS: #Eosinphils 0.1 thou/uL (0.0-0.7); #Lymphocytes 1.6 thou/uL (1.20-3.40); #Monocytes 0.5 thou/uL (0.11-0.59); #Neutrophils 6.7 thou/uL (1.40-6.50); %Basophils 0.5 % (0.0-1.0); %Eosinophils 1.6 % (0.0-10.0); %Lymphocytes 17.5 % (21.0-51.0); %Monocytes 5.7 % (0.0-10.0); %Neutrophils 74.7 % (42.0-75.0); Hemoglobin 11.9 g/dL (14.0-18.0); Mean Corpuscular HGB CONC 34.9 g/dL (32.0-36.0); Mean Corpuscular Hemoglobin 29.6 pg (27.0-31.0); Mean Corpuscular Volume 84.8 fl (78.0-98.0); Mean Platelet Volume 9.3 fL (7.4-10.4); Platelet Count 248 10x3/uL (130-400); RBC Distribution Width 12.1 % (11.5-14.5); Red Blood Cell (RBC) Count 4.01 mill/uL (4.70-6.10); White Blood Cell (WBC) Count 8.9 10x3/uL (4.8-10.8)
[2022-04-01 05:33] LABS: Anion Gap 9 mmol/L (10-20); BUN (Urea Nitrogen) 11 mg/dL (8.4-25.7); Calc. Creatinine Clearance 80 mL/min (70-130); Carbon Dioxide 30 mmol/L (23-31); Cardiac Risk 6.8 (Less than 4.5); Chloride 101 mmol/L (98-107); Cholesterol 171 mg/dl (< 200 Desired); Estimated GFR 92; Glucose 207 mg/dL (83-110); HDL Cholesterol 25 mg/dL (>60 Neg Risk); LDL Cholesterol, Calculated 112 mg/dL; Potassium 2.7 mmol/L (3.5-5.1); Sodium 137 mmol/L (136-145); Triglycerides 168 mg/dL (Less than 150)
[2022-04-01] MEDS: Levothyroxine Sodium 75 MCG TAB PO SCH (05:58)
[2022-04-01] MEDS ORDERED: Glimepiride 4 MG TAB PO SCH (08:30)
[2022-04-01] MEDS: Sodium Chloride 0.9% 1,000 ML IV SCH ×2 (08:39→22:30)
[2022-04-01] MEDS: buPROPion 75 MG TAB PO SCH ×2 (11:54→22:31)
[2022-04-01] MEDS: Aspirin 81 mg Enteric Coated Tablet PO SCH (11:55)
[2022-04-01] MEDS: Venlafaxine XR 37.5 MG CAP PO SCH (11:55)
[2022-04-01] MEDS: Losartan 25 MG TAB PO SCH (11:56)
[2022-04-01] MEDS ORDERED: Potassium Chloride 20 MEQ TAB PO SCH (12:15)
[2022-04-01] MEDS ORDERED: Electrolyte Replacement Protocol 1 EACH FS SCH (12:15)
[2022-04-01 12:39] LABS: Magnesium 1.7 mg/dL (1.6-2.6)
[2022-04-01] MEDS: Potassium Chloride 20 MEQ TAB PO SCH ×2 (13:02→17:47)
[2022-04-01] MEDS: Rivaroxaban 10 MG TAB PO SCH (13:02)
[2022-04-01] MEDS: HumaLOG 300 UNITS/3 ML VIAL SC PRN ×2 (13:06→22:39)
[2022-04-01] MEDS ORDERED: Magnesium 2 GM/50 ML(in water) 2 GM in Premix Bag 1 BAG IVPB SCH (13:30)
[2022-04-01] MEDS: Acetaminophen 325 MG TAB PO PRN ×2 (18:15→23:12)
[2022-04-01] MEDS: Donepezil HCl 10 MG TAB PO SCH (22:31)
[2022-04-01] MEDS: Atorvastatin Calcium 40 MG TAB PO SCH (22:31)
[2022-04-02 05:05] LABS: #Eosinphils 0.1 thou/uL (0.0-0.7); #Lymphocytes 1.7 thou/uL (1.20-3.40); #Monocytes 0.6 thou/uL (0.11-0.59); #Neutrophils 6.9 thou/uL (1.40-6.50); %Basophils 0.1 % (0.0-1.0); %Eosinophils 1.3 % (0.0-10.0); %Lymphocytes 18.1 % (21.0-51.0); %Monocytes 6.4 % (0.0-10.0); Hemoglobin 11.9 g/dL (14.0-18.0); Mean Corpuscular HGB CONC 35.9 g/dL (32.0-36.0); Mean Corpuscular Hemoglobin 30.8 pg (27.0-31.0); Mean Corpuscular Volume 85.8 fl (78.0-98.0); Mean Platelet Volume 8.8 fL (7.4-10.4); Platelet Count 271 10x3/uL (130-400); Red Blood Cell (RBC) Count 3.87 mill/uL (4.70-6.10); White Blood Cell (WBC) Count 9.3 10x3/uL (4.8-10.8)
[2022-04-02 05:28] LABS: Anion Gap 12 mmol/L (10-20); BUN (Urea Nitrogen) 11 mg/dL (8.4-25.7); Calc. Creatinine Clearance 83 mL/min (70-130); Calcium 8.3 mg/dL (7.8-10.44); Carbon Dioxide 25 mmol/L (23-31); Chloride 102 mmol/L (98-107); Estimated GFR 93; Glucose 145 mg/dL (83-110); Potassium 3.3 mmol/L (3.5-5.1); Sodium 136 mmol/L (136-145)
[2022-04-02] MEDS: Levothyroxine Sodium 75 MCG TAB PO SCH (05:56)
[2022-04-02] MEDS: Losartan 25 MG TAB PO SCH (08:42)
[2022-04-02] MEDS: buPROPion 75 MG TAB PO SCH ×2 (08:42→20:43)
[2022-04-02] MEDS: Aspirin 81 mg Enteric Coated Tablet PO SCH (08:42)
[2022-04-02] MEDS: Glimepiride 4 MG TAB PO SCH (08:42)
[2022-04-02] MEDS: Venlafaxine XR 37.5 MG CAP PO SCH (08:43)
[2022-04-02] MEDS: Rivaroxaban 10 MG TAB PO SCH (08:43)
[2022-04-02] MEDS ORDERED: Potassium Chloride 20 MEQ TAB PO SCH ×2 (09:00→15:00)
[2022-04-02] MEDS: Sodium Chloride 0.9% 1,000 ML IV SCH ×2 (09:28→19:15)
[2022-04-02 13:06] LABS: Potassium 3.5 mmol/L (3.5-5.1)
[2022-04-02] MEDS: Atorvastatin Calcium 40 MG TAB PO SCH (20:43)
[2022-04-02] MEDS: Donepezil HCl 10 MG TAB PO SCH (20:43)
[2022-04-03 04:22] LABS: #Eosinphils 0.1 thou/uL (0.0-0.7); #Lymphocytes 1.6 thou/uL (1.20-3.40); #Monocytes 0.7 thou/uL (0.11-0.59); %Eosinophils 1.1 % (0.0-10.0); %Lymphocytes 13.9 % (21.0-51.0); %Monocytes 6.2 % (0.0-10.0); %Neutrophils 78.7 % (42.0-75.0); Hemoglobin 13.1 g/dL (14.0-18.0); Mean Corpuscular HGB CONC 33.5 g/dL (32.0-36.0); Mean Corpuscular Hemoglobin 28.7 pg (27.0-31.0); Mean Corpuscular Volume 85.7 fl (78.0-98.0); Mean Platelet Volume 8.8 fL (7.4-10.4); Platelet Count 313 10x3/uL (130-400); RBC Distribution Width 12.1 % (11.5-14.5); Red Blood Cell (RBC) Count 4.58 mill/uL (4.70-6.10); White Blood Cell (WBC) Count 11.5 10x3/uL (4.8-10.8)
[2022-04-03 04:39] LABS: Anion Gap 13 mmol/L (10-20); BUN (Urea Nitrogen) 8 mg/dL (8.4-25.7); Calc. Creatinine Clearance 79 mL/min (70-130); Calcium 8.7 mg/dL (7.8-10.44); Carbon Dioxide 24 mmol/L (23-31); Chloride 102 mmol/L (98-107); Estimated GFR 92; Glucose 146 mg/dL (83-110); Magnesium 1.6 mg/dL (1.6-2.6); Potassium 4.3 mmol/L (3.5-5.1); Sodium 135 mmol/L (136-145)
[2022-04-03 04:40] LABS: Phosphorus 2.4 mg/dL (2.3-4.7)
[2022-04-03] MEDS: Sodium Chloride 0.9% 1,000 ML IV SCH (05:20)
[2022-04-03] MEDS: Levothyroxine Sodium 75 MCG TAB PO SCH (05:36)
[2022-04-03] MEDS ORDERED: Magnesium 2 GM/50 ML(in water) 2 GM in Premix Bag 1 BAG IVPB SCH (08:00)
[2022-04-03] MEDS: Losartan 25 MG TAB PO SCH (09:08)
[2022-04-03] MEDS: buPROPion 75 MG TAB PO SCH ×2 (09:08→20:51)
[2022-04-03] MEDS: Glimepiride 4 MG TAB PO SCH (09:08)
[2022-04-03] MEDS: Rivaroxaban 10 MG TAB PO SCH (09:08)
[2022-04-03] MEDS: Aspirin 81 mg Enteric Coated Tablet PO SCH (09:08)
[2022-04-03] MEDS: Venlafaxine XR 37.5 MG CAP PO SCH (09:09)
[2022-04-03] MEDS: Atorvastatin Calcium 40 MG TAB PO SCH (20:51)
[2022-04-03] MEDS: Donepezil HCl 10 MG TAB PO SCH (20:51)
[2022-04-03] MEDS: Acetaminophen 325 MG TAB PO PRN (20:51)
[2022-04-04 05:23] LABS: #Eosinphils 0.1 thou/uL (0.0-0.7); #Lymphocytes 1.3 thou/uL (1.20-3.40); #Monocytes 0.5 thou/uL (0.11-0.59); #Neutrophils 8.4 thou/uL (1.40-6.50); %Eosinophils 0.8 % (0.0-10.0); %Lymphocytes 12.3 % (21.0-51.0); %Monocytes 4.7 % (0.0-10.0); %Neutrophils 82.2 % (42.0-75.0); Hemoglobin 14.6 g/dL (14.0-18.0); Mean Corpuscular HGB CONC 33.5 g/dL (32.0-36.0); Mean Corpuscular Hemoglobin 28.6 pg (27.0-31.0); Mean Corpuscular Volume 85.6 fl (78.0-98.0); Mean Platelet Volume 8.8 fL (7.4-10.4); Platelet Count 368 10x3/uL (130-400); RBC Distribution Width 12.2 % (11.5-14.5); White Blood Cell (WBC) Count 10.2 10x3/uL (4.8-10.8)
[2022-04-04 05:39] LABS: Anion Gap 15 mmol/L (10-20); BUN (Urea Nitrogen) 10 mg/dL (8.4-25.7); Calc. Creatinine Clearance 78 mL/min (70-130); Calcium 9.2 mg/dL (7.8-10.44); Carbon Dioxide 24 mmol/L (23-31); Chloride 101 mmol/L (98-107); Estimated GFR 91; Glucose 113 mg/dL (83-110); Magnesium 2.1 mg/dL (1.6-2.6); Potassium 4.1 mmol/L (3.5-5.1); Sodium 136 mmol/L (136-145)
[2022-04-04] MEDS: Levothyroxine Sodium 75 MCG TAB PO SCH (06:24)
[2022-04-04] MEDS ORDERED: FLU VACC QS2022-23(65YR UP)/PF 240 MCG/0.7 ML SYRINGE IM ONE (09:00)
[2022-04-04] MEDS: Venlafaxine XR 37.5 MG CAP PO SCH (09:25)
[2022-04-04] MEDS: Aspirin 81 mg Enteric Coated Tablet PO SCH (09:25)
[2022-04-04] MEDS: Rivaroxaban 10 MG TAB PO SCH (09:25)
[2022-04-04] MEDS: Losartan 25 MG TAB PO SCH (09:25)
[2022-04-04] MEDS: Glimepiride 2 MG TAB PO SCH (09:25)
[2022-04-04] MEDS: buPROPion 75 MG TAB PO SCH ×2 (09:25→20:44)
[2022-04-04] MEDS: HumaLOG 300 UNITS/3 ML VIAL SC PRN ×2 (11:21→20:44)
[2022-04-04] MEDS: Donepezil HCl 10 MG TAB PO SCH (19:57)
[2022-04-04] MEDS: Acetaminophen 325 MG TAB PO PRN (19:57)
[2022-04-04] MEDS: Atorvastatin Calcium 40 MG TAB PO SCH (19:57)
[2022-04-05 05:14] LABS: #Eosinphils 0.1 thou/uL (0.0-0.7); #Lymphocytes 1.6 thou/uL (1.20-3.40); #Monocytes 0.8 thou/uL (0.11-0.59); #Neutrophils 8.4 thou/uL (1.40-6.50); %Basophils 0.1 % (0.0-1.0); %Eosinophils 0.9 % (0.0-10.0); %Lymphocytes 14.9 % (21.0-51.0); %Monocytes 7.1 % (0.0-10.0); %Neutrophils 77.1 % (42.0-75.0); Hemoglobin 13.1 g/dL (14.0-18.0); Mean Corpuscular Hemoglobin 28.8 pg (27.0-31.0); Mean Corpuscular Volume 84.9 fl (78.0-98.0); Mean Platelet Volume 8.8 fL (7.4-10.4); Platelet Count 347 10x3/uL (130-400); RBC Distribution Width 12.3 % (11.5-14.5); Red Blood Cell (RBC) Count 4.53 mill/uL (4.70-6.10); White Blood Cell (WBC) Count 10.9 10x3/uL (4.8-10.8)
[2022-04-05 05:30] LABS: Anion Gap 13 mmol/L (10-20); BUN (Urea Nitrogen) 17 mg/dL (8.4-25.7); Calc. Creatinine Clearance 66 mL/min (70-130); Calcium 8.9 mg/dL (7.8-10.44); Carbon Dioxide 25 mmol/L (23-31); Chloride 101 mmol/L (98-107); Estimated GFR 82; Glucose 170 mg/dL (83-110); Potassium 3.5 mmol/L (3.5-5.1); Sodium 135 mmol/L (136-145)
[2022-04-05] MEDS: Levothyroxine Sodium 75 MCG TAB PO SCH (06:03)
[2022-04-05] MEDS ORDERED: Potassium Chloride 20 MEQ TAB PO SCH (09:00)
[2022-04-05] MEDS: Venlafaxine XR 37.5 MG CAP PO SCH (09:27)
[2022-04-05] MEDS: Aspirin 81 mg Enteric Coated Tablet PO SCH (09:27)
[2022-04-05] MEDS: buPROPion 75 MG TAB PO SCH ×2 (09:28→22:10)
[2022-04-05] MEDS: Losartan 25 MG TAB PO SCH (09:28)
[2022-04-05] MEDS: Glimepiride 2 MG TAB PO SCH (09:28)
[2022-04-05] MEDS: Rivaroxaban 10 MG TAB PO SCH (09:28)
[2022-04-05 15:44] VITALS: BMI 26.2
[2022-04-05] MEDS: HumaLOG 300 UNITS/3 ML VIAL SC PRN (18:27)
[2022-04-05] MEDS: Donepezil HCl 10 MG TAB PO SCH (22:10)
[2022-04-05] MEDS: Atorvastatin Calcium 40 MG TAB PO SCH (22:10)
[2022-04-06 04:58] LABS: Magnesium 1.8 mg/dL (1.6-2.6)
[2022-04-06] MEDS: Levothyroxine Sodium 75 MCG TAB PO SCH (06:16)
[2022-04-06] MEDS: HumaLOG 300 UNITS/3 ML VIAL SC PRN ×3 (06:16→21:42)
[2022-04-06] MEDS: Losartan 25 MG TAB PO SCH (09:19)
[2022-04-06] MEDS: Aspirin 81 mg Enteric Coated Tablet PO SCH (09:19)
[2022-04-06] MEDS: Rivaroxaban 10 MG TAB PO SCH (09:20)
[2022-04-06] MEDS: Glimepiride 2 MG TAB PO SCH (09:20)
[2022-04-06] MEDS: buPROPion 75 MG TAB PO SCH ×2 (09:20→21:42)
[2022-04-06] MEDS: Venlafaxine XR 37.5 MG CAP PO SCH (09:20)
[2022-04-06] MEDS ORDERED: Magnesium 2 GM/50 ML(in water) 2 GM in Premix Bag 1 BAG IVPB SCH (12:00)
[2022-04-06] MEDS ORDERED: Potassium Chloride 20 MEQ TAB PO SCH (12:00)
[2022-04-06 13:17] LABS: Anion Gap 13 mmol/L (10-20); BUN (Urea Nitrogen) 17 mg/dL (8.4-25.7); Calc. Creatinine Clearance 70 mL/min (70-130); Carbon Dioxide 27 mmol/L (23-31); Chloride 100 mmol/L (98-107); Estimated GFR 88; Glucose 231 mg/dL (83-110); Potassium 3.6 mmol/L (3.5-5.1); Sodium 136 mmol/L (136-145)
[2022-04-06] MEDS: Donepezil HCl 10 MG TAB PO SCH (21:42)
[2022-04-06] MEDS: Atorvastatin Calcium 40 MG TAB PO SCH (21:42)
[2022-04-07] MEDS: Levothyroxine Sodium 75 MCG TAB PO SCH (06:08)
[2022-04-07] MEDS: HumaLOG 300 UNITS/3 ML VIAL SC PRN ×3 (06:08→17:40)
[2022-04-07] MEDS: Venlafaxine XR 37.5 MG CAP PO SCH (09:02)
[2022-04-07] MEDS: Aspirin 81 mg Enteric Coated Tablet PO SCH (09:02)
[2022-04-07] MEDS: Losartan 25 MG TAB PO SCH (09:03)
[2022-04-07] MEDS: Glimepiride 2 MG TAB PO SCH (09:04)
[2022-04-07] MEDS: Rivaroxaban 10 MG TAB PO SCH (09:04)
[2022-04-07] MEDS: buPROPion 75 MG TAB PO SCH ×2 (09:04→23:36)
[2022-04-07] MEDS: Atorvastatin Calcium 40 MG TAB PO SCH (23:37)
[2022-04-07] MEDS: Donepezil HCl 10 MG TAB PO SCH (23:37)
[2022-04-08] MEDS: Levothyroxine Sodium 75 MCG TAB PO SCH (06:35)
[2022-04-08] MEDS: HumaLOG 300 UNITS/3 ML VIAL SC PRN ×2 (06:35→21:58)
[2022-04-08] MEDS: Venlafaxine XR 37.5 MG CAP PO SCH (09:32)
[2022-04-08] MEDS: Losartan 25 MG TAB PO SCH (09:32)
[2022-04-08] MEDS: Rivaroxaban 10 MG TAB PO SCH (09:32)
[2022-04-08] MEDS: buPROPion 75 MG TAB PO SCH ×2 (09:33→20:38)
[2022-04-08] MEDS: Glimepiride 2 MG TAB PO SCH (09:33)
[2022-04-08] MEDS: Aspirin 81 mg Enteric Coated Tablet PO SCH (09:33)
[2022-04-08] MEDS: Atorvastatin Calcium 40 MG TAB PO SCH (20:38)
[2022-04-08] MEDS: Donepezil HCl 10 MG TAB PO SCH (20:38)
[2022-04-09 04:31] LABS: #Basophils 0.1 thou/uL (0.0-0.2); #Eosinphils 0.2 thou/uL (0.0-0.7); #Lymphocytes 1.9 thou/uL (1.20-3.40); #Monocytes 0.9 thou/uL (0.11-0.59); #Neutrophils 7.7 thou/uL (1.40-6.50); %Basophils 0.6 % (0.0-1.0); %Eosinophils 1.8 % (0.0-10.0); %Lymphocytes 17.5 % (21.0-51.0); %Monocytes 8.6 % (0.0-10.0); %Neutrophils 71.6 % (42.0-75.0); Mean Corpuscular HGB CONC 33.2 g/dL (32.0-36.0); Mean Corpuscular Volume 87.3 fl (78.0-98.0); Mean Platelet Volume 8.6 fL (7.4-10.4); Platelet Count 355 10x3/uL (130-400); RBC Distribution Width 12.5 % (11.5-14.5); Red Blood Cell (RBC) Count 4.83 mill/uL (4.70-6.10); White Blood Cell (WBC) Count 10.8 10x3/uL (4.8-10.8)
[2022-04-09 04:48] LABS: Anion Gap 16 mmol/L (10-20); BUN (Urea Nitrogen) 18 mg/dL (8.4-25.7); Calc. Creatinine Clearance 64 mL/min (70-130); Calcium 9.3 mg/dL (7.8-10.44); Carbon Dioxide 22 mmol/L (23-31); Chloride 104 mmol/L (98-107); Estimated GFR 80; Glucose 154 mg/dL (83-110); Magnesium 1.9 mg/dL (1.6-2.6); Potassium 4.7 mmol/L (3.5-5.1); Sodium 137 mmol/L (136-145)
[2022-04-09] MEDS: Levothyroxine Sodium 75 MCG TAB PO SCH (05:36)
[2022-04-09] MEDS: HumaLOG 300 UNITS/3 ML VIAL SC PRN ×2 (06:28→13:12)
[2022-04-09] MEDS: Aspirin 81 mg Enteric Coated Tablet PO SCH (09:26)
[2022-04-09] MEDS: buPROPion 75 MG TAB PO SCH ×2 (09:27→21:26)
[2022-04-09] MEDS: Rivaroxaban 10 MG TAB PO SCH (09:27)
[2022-04-09] MEDS: Losartan 25 MG TAB PO SCH (09:27)
[2022-04-09] MEDS: Venlafaxine XR 37.5 MG CAP PO SCH (09:28)
[2022-04-09] MEDS: Glimepiride 2 MG TAB PO SCH (09:28)
[2022-04-09] MEDS: Acetaminophen 325 MG TAB PO PRN (19:56)
[2022-04-09] MEDS ORDERED: Ketorolac Tromethamine 30 MG/ML VIAL IVP SCH (21:00)
[2022-04-09] MEDS: Atorvastatin Calcium 40 MG TAB PO SCH (21:26)
[2022-04-09] MEDS: Donepezil HCl 10 MG TAB PO SCH (21:26)
[2022-04-10] MEDS: Levothyroxine Sodium 75 MCG TAB PO SCH (06:32)
[2022-04-10] MEDS: HumaLOG 300 UNITS/3 ML VIAL SC PRN ×2 (07:52→21:26)
[2022-04-10] MEDS: Losartan 25 MG TAB PO SCH (09:11)
[2022-04-10] MEDS: buPROPion 75 MG TAB PO SCH ×2 (09:11→20:34)
[2022-04-10] MEDS: Aspirin 81 mg Enteric Coated Tablet PO SCH (09:11)
[2022-04-10] MEDS: Glimepiride 2 MG TAB PO SCH (09:11)
[2022-04-10] MEDS: Rivaroxaban 10 MG TAB PO SCH (09:12)
[2022-04-10] MEDS: Venlafaxine XR 37.5 MG CAP PO SCH (09:12)
[2022-04-10] MEDS: Acetaminophen 325 MG TAB PO PRN (20:35)
[2022-04-10] MEDS: Donepezil HCl 10 MG TAB PO SCH (20:35)
[2022-04-10] MEDS: Atorvastatin Calcium 40 MG TAB PO SCH (20:35)
[2022-04-11] MEDS: Levothyroxine Sodium 75 MCG TAB PO SCH (06:17)
[2022-04-11] MEDS: HumaLOG 300 UNITS/3 ML VIAL SC PRN ×2 (06:56→21:52)
[2022-04-11] MEDS: buPROPion 75 MG TAB PO SCH ×2 (10:40→21:51)
[2022-04-11] MEDS: Aspirin 81 mg Enteric Coated Tablet PO SCH (10:41)
[2022-04-11] MEDS: Rivaroxaban 10 MG TAB PO SCH (10:42)
[2022-04-11] MEDS: Venlafaxine XR 37.5 MG CAP PO SCH (10:43)
[2022-04-11] MEDS: Losartan 25 MG TAB PO SCH (10:47)
[2022-04-11] MEDS: Insulin Glargine 30 UNITS/0.3 ML VIAL SC SCH (14:19)
[2022-04-11] MEDS: Glimepiride 2 MG TAB PO SCH (14:20)
[2022-04-11] MEDS: Donepezil HCl 10 MG TAB PO SCH (21:52)
[2022-04-11] MEDS: Atorvastatin Calcium 40 MG TAB PO SCH (21:52)
[2022-04-12] MEDS: Levothyroxine Sodium 75 MCG TAB PO SCH (06:29)
[2022-04-12] MEDS: HumaLOG 300 UNITS/3 ML VIAL SC PRN ×3 (06:30→21:21)
[2022-04-12 09:46] LABS: Anion Gap 15 mmol/L (10-20); BUN (Urea Nitrogen) 16 mg/dL (8.4-25.7); Calc. Creatinine Clearance 68 mL/min (70-130); Calcium 9.5 mg/dL (7.8-10.44); Carbon Dioxide 24 mmol/L (23-31); Chloride 100 mmol/L (98-107); Estimated GFR 86; Glucose 131 mg/dL (83-110); Magnesium 1.9 mg/dL (1.6-2.6); Potassium 4.2 mmol/L (3.5-5.1); Sodium 135 mmol/L (136-145)
[2022-04-12] MEDS: buPROPion 75 MG TAB PO SCH ×2 (11:16→21:20)
[2022-04-12] MEDS: Losartan 25 MG TAB PO SCH (11:18)
[2022-04-12] MEDS: Aspirin 81 mg Enteric Coated Tablet PO SCH (11:18)
[2022-04-12] MEDS: Rivaroxaban 10 MG TAB PO SCH (11:20)
[2022-04-12] MEDS: Venlafaxine XR 37.5 MG CAP PO SCH (11:21)
[2022-04-12] MEDS: Insulin Glargine 30 UNITS/0.3 ML VIAL SC SCH (11:21)
[2022-04-12] MEDS: Glimepiride 2 MG TAB PO SCH (14:41)
[2022-04-12] MEDS: Donepezil HCl 10 MG TAB PO SCH (21:20)
[2022-04-12] MEDS: Atorvastatin Calcium 40 MG TAB PO SCH (21:20)
[2022-04-13] MEDS: HumaLOG 300 UNITS/3 ML VIAL SC PRN (05:58)
[2022-04-13] MEDS: Levothyroxine Sodium 75 MCG TAB PO SCH (05:58)
[2022-04-13] MEDS: Venlafaxine XR 37.5 MG CAP PO SCH (10:20)
[2022-04-13] MEDS: Insulin Glargine 30 UNITS/0.3 ML VIAL SC SCH (10:20)
[2022-04-13] MEDS: Glimepiride 2 MG TAB PO SCH (10:21)
[2022-04-13] MEDS: Aspirin 81 mg Enteric Coated Tablet PO SCH (10:21)
[2022-04-13] MEDS: Rivaroxaban 10 MG TAB PO SCH (10:21)
[2022-04-13] MEDS: Losartan 25 MG TAB PO SCH (10:21)
[2022-04-13] MEDS: buPROPion 75 MG TAB PO SCH (10:22)
[2022-04-13 12:18] VITALS: BP 155/74; TEMP 98
== END 2022-04-13 14:40 | DRG 884 ==
LOC: ERS 13:06 → T4-B 16:23 → 2NO 04-01 02:09 → OBSVTOIN 04-02 11:00
PROVIDERS: ADMIT Family Medicine; ATTEND Family Medicine
DX: F03.90 Unspecified dementia, unspecified severity, without behavioral disturbance, psychotic disturbance, mood disturbance, and anxiety (principal); G93.41 Metabolic encephalopathy; E44.0 Moderate protein-calorie malnutrition; I48.92 Unspecified atrial flutter; E11.649 Type 2 diabetes mellitus with hypoglycemia without coma; E86.0 Dehydration; Z20.822 Contact with and (suspected) exposure to COVID-19; E78.5 Hyperlipidemia, unspecified; I25.10 Atherosclerotic heart disease of native coronary artery without angina pectoris; E87.6 Hypokalemia; E83.42 Hypomagnesemia; Z28.21 Immunization not carried out because of patient refusal; Z90.01 Acquired absence of eye; Z95.1 Presence of aortocoronary bypass graft; Z68.26 Body mass index [BMI] 26.0-26.9, adult; Z79.899 Other long term (current) drug therapy; Z79.890 Hormone replacement therapy; Z79.01 Long term (current) use of anticoagulants; Z79.82 Long term (current) use of aspirin; Z98.890 Other specified postprocedural states
CPT/HCPCS: 36415; 36416; 70450; 70551; 71045; 76770; 80048; 80053; 80061; 81003; 81015; 82805; 83605; 83690; 83735; 84100; 84484; 85025; 87811; 93005; 95816; 95819; 95957; 96360; 96361; 96374; G0378; J1815; J3475; J7050; U0003; U0005

== ENCOUNTER 2022-05-17 12:36 | Inpatient (IN) | payer MEDICARE, OTHER ==
[~2022-05-17 12:36] MED LIST changes: +Iopamidol-370 76% 500 ML 1 ML ONE; -Magnevist 469MG/ML 20 ML VIAL ONE
[2022-05-17 13:28] LABS: Hemoglobin 10.2 g/dL (14.0-18.0); Mean Corpuscular HGB CONC 32.1 g/dL (32.0-36.0); Mean Corpuscular Hemoglobin 27.3 pg (27.0-31.0); Platelet Count 504 10x3/uL (130-400); RBC Distribution Width 14.3 % (11.5-14.5); Red Blood Cell (RBC) Count 3.74 mill/uL (4.70-6.10); White Blood Cell (WBC) Count 16.1 10x3/uL (4.8-10.8)
[2022-05-17] MEDS ORDERED: cefTRIAXone\\ROCEPHIN 1 GM VIAL ONE (13:49)
[2022-05-17 13:53] LABS: Band 21 % (5-11); Lymphocytes 4 % (21-51); MDiff Complete? YES; Monocytes 5 % (0-10); Neutrophil 69 % (42-75); Platelet Morphology Comment Appears Increased; Polychromasia SLIGHT = 2-3 cells (100X) (0-2/hpf); Reactive Lymphocytes 1 % (0-10); Vacuoles SLIGHT
[2022-05-17 14:10] LABS: INR-International Normal Ratio 3.6; PTT 46.5 sec (22.9-36.1); Prothrombin Time 37.8 sec (12.0-14.7)
[2022-05-17 14:24] LABS: ALT (SGPT) 15 U/L (8-55); AST (SGOT) 27 U/L (5-34); Albumin 2.8 g/dL (3.4-4.8); Alkaline Phosphatase 176 U/L (40-110); Anion Gap 19 mmol/L (10-20); BUN (Urea Nitrogen) 66 mg/dL (8.4-25.7); Bilirubin, Total 0.8 mg/dL (0.2-1.2); Calc. Creatinine Clearance 0 mL/min (70-130); Calcium 9.4 mg/dL (7.8-10.44); Carbon Dioxide 25 mmol/L (23-31); Chloride 108 mmol/L (98-107); Estimated GFR 35; Globulin 4.6 g/dL (2.4-3.5); Glucose 278 mg/dL (83-110); Lipase 21 U/L (8-78); Magnesium 2.6 mg/dL (1.6-2.6); Potassium 3.7 mmol/L (3.5-5.1); Protein, Total 7.4 g/dL (5.8-8.1); Sodium 148 mmol/L (136-145)
[2022-05-17 14:26] LABS: CKMB 0.9 ng/mL (0-6.6)
[2022-05-17] MEDS ORDERED: Vancomycin 1 GM/200 ML (FROZEN) BAG ONE (15:05)
[2022-05-17] MEDS ORDERED: Ondansetron PF 4 MG/2 ML Vial IVP PRN (15:28)
[2022-05-17] MEDS ORDERED: Dextrose 50% Abboject 50 ML SYRINGE SLOW IVP PRN (15:28)
[2022-05-17] MEDS ORDERED: Senokot S 8.6-50 MG TAB PO PRN (15:28)
[2022-05-17] MEDS ORDERED: HumaLOG 300 UNITS/3 ML VIAL SC PRN ×2 (15:28)
[2022-05-17] MEDS ORDERED: Dextrose 5% in Water 1,000 ML IV PRN (15:28)
[2022-05-17] MEDS ORDERED: Acetaminophen 325 MG TAB PO PRN (15:28)
[2022-05-17] MEDS ORDERED: Vancomycin 1 GM in Premix Bag 1 BAG IVPB SCH (15:30)
[2022-05-17] MEDS ORDERED: Morphine 2 MG/ML VIAL SLOW IVP PRN (16:19)
[2022-05-17] MEDS ORDERED: Vancomycin Dose by Levels Sliding Scale (Wt <71) FS SCH (16:30)
[2022-05-17 16:37] LABS: SARS-CoV-2 NAA Rapid Test DETECTED (NotDetected)
[2022-05-17] MEDS ORDERED: HYDROcodone/Acetaminophen 5/325 mg Tablet ONE (18:21)
[2022-05-17] MEDS: HYDROcodone/Acetaminophen 5/325 mg Tablet PO PRN ×2 (18:28→23:51)
[2022-05-17 20:07] VITALS: BMI 23.2
[2022-05-17] MEDS: Sodium Chloride 0.9% 1,000 ML IV SCH (20:27)
[2022-05-17] MEDS: Donepezil HCl 10 MG TAB PO SCH (20:28)
[2022-05-17] MEDS: buPROPion 75 MG TAB PO SCH (20:28)
[2022-05-17] MEDS: Gabapentin 100 MG CAP PO SCH (20:28)
[2022-05-17] MEDS: Atorvastatin Calcium 40 MG TAB PO SCH (20:28)
[2022-05-17] MEDS: Meropenem 500 MG in Sodium Chloride 0.9% 100 ML IVPB SCH ×3 (21:17→21:57)
[2022-05-17] MEDS: Meropenem 1 GM in Sodium Chloride 0.9% 100 ML IVPB SCH ×2 (21:58)
[2022-05-17] MEDS ORDERED: Meropenem 1 GM in Sodium Chloride 0.9% 100 ML IVPB SCH (22:00)
[2022-05-18] MEDS: Sodium Chloride 0.9% 1,000 ML IV SCH ×2 (01:12→09:28)
[2022-05-18] MEDS: Meropenem 500 MG in Sodium Chloride 0.9% 100 ML IVPB SCH ×3 (02:18→18:20)
[2022-05-18 05:01] LABS: #Lymphocytes 0.8 thou/uL (1.20-3.40); #Neutrophils 9.5 thou/uL (1.40-6.50); %Basophils 0.3 % (0.0-1.0); %Eosinophils 0.1 % (0.0-10.0); %Lymphocytes 7.3 % (21.0-51.0); %Monocytes 8.5 % (0.0-10.0); %Neutrophils 83.7 % (42.0-75.0); Hemoglobin 8.9 g/dL (14.0-18.0); Mean Corpuscular HGB CONC 33.6 g/dL (32.0-36.0); Mean Corpuscular Volume 86.2 fl (78.0-98.0); Mean Platelet Volume 9.2 fL (7.4-10.4); Platelet Count 308 10x3/uL (130-400); RBC Distribution Width 14.2 % (11.5-14.5); Red Blood Cell (RBC) Count 3.06 mill/uL (4.70-6.10); White Blood Cell (WBC) Count 11.4 10x3/uL (4.8-10.8)
[2022-05-18] MEDS: Levothyroxine Sodium 75 MCG TAB PO SCH (05:03)
[2022-05-18] MEDS: HYDROcodone/Acetaminophen 5/325 mg Tablet PO PRN ×4 (05:03→23:21)
[2022-05-18 05:20] LABS: PTT 41.9 sec (22.9-36.1)
[2022-05-18 05:32] LABS: ALT (SGPT) 13 U/L (8-55); AST (SGOT) 23 U/L (5-34); Albumin 2.3 g/dL (3.4-4.8); Alkaline Phosphatase 136 U/L (40-110); Anion Gap 15 mmol/L (10-20); BUN (Urea Nitrogen) 47 mg/dL (8.4-25.7); Bilirubin, Total 0.6 mg/dL (0.2-1.2); Calc. Creatinine Clearance 48 mL/min (70-130); Calcium 7.8 mg/dL (7.8-10.44); Carbon Dioxide 24 mmol/L (23-31); Chloride 114 mmol/L (98-107); Critical Call Chem Troponin I RESULT DECREASING; Estimated GFR 65; Globulin 2.8 g/dL (2.4-3.5); Glucose 260 mg/dL (83-110); Magnesium 2.2 mg/dL (1.6-2.6); Potassium 3.8 mmol/L (3.5-5.1); Protein, Total 5.1 g/dL (5.8-8.1); Sodium 149 mmol/L (136-145); Troponin I 0.321 ng/mL (< 0.028)
[2022-05-18] MEDS: buPROPion 75 MG TAB PO SCH ×2 (09:27→21:09)
[2022-05-18] MEDS: Venlafaxine XR 37.5 MG CAP PO SCH (09:27)
[2022-05-18] MEDS: Aspirin 81 mg Enteric Coated Tablet PO SCH (09:28)
[2022-05-18] MEDS: Gabapentin 100 MG CAP PO SCH ×3 (09:28→21:09)
[2022-05-18] MEDS ORDERED: Morphine 2 MG/ML VIAL SLOW IVP PRN (12:34)
[2022-05-18] MEDS ORDERED: fentaNYL PF 100 MCG/2 ML SYRINGE ONE (13:32)
[2022-05-18] MEDS ORDERED: Rocuronium Bromide 10 MG/ML (10ML VIAL) ONE (13:45)
[2022-05-18] MEDS ORDERED: Lidocaine 1% PF 5 ML VIAL ONE (13:45)
[2022-05-18] MEDS ORDERED: PHENYLEPHRINE-NS 100 MCG/ML 10 ML SYRINGE ONE (13:45)
[2022-05-18] MEDS ORDERED: Ondansetron PF 4 MG/2 ML Vial ONE (13:45)
[2022-05-18] MEDS ORDERED: NEOSTIGMINE 3 MG/3 ML SYR 3 MG/3 ML SYRINGE ONE (13:45)
[2022-05-18] MEDS ORDERED: Glycopyrrolate 0.2 MG/ML 5 ML SYRINGE ONE (13:45)
[2022-05-18] MEDS ORDERED: SUGAMMADEX SODIUM 200 MG/2 ML VIAL ONE (14:46)
[2022-05-18] MEDS ORDERED: Fentanyl 100 MCG/2 ML VIAL ONE ×2 (15:08→15:35)
[2022-05-18] MEDS ORDERED: Ondansetron HCl/PF 4 MG/2 ML Vial IVP PRN (15:10)
[2022-05-18] MEDS ORDERED: Promethazine HCl 25 MG/ML VIAL IM PRN (15:10)
[2022-05-18] MEDS: Morphine 4 MG/ML VIAL SLOW IVP PRN ×2 (17:08→21:20)
[2022-05-18 18:13] LABS: INR-International Normal Ratio 1.5; PTT 33.6 sec (22.9-36.1); Prothrombin Time 18.4 sec (12.0-14.7)
[2022-05-18 18:33] LABS: Vancomycin, Random 6.8 ug/mL (See Comment)
[2022-05-18] MEDS ORDERED: Vancomycin HCl 750 MG in Sodium Chloride 0.9% 250 ML 250 ML IVPB SCH (19:15)
[2022-05-18] MEDS: Donepezil HCl 10 MG TAB PO SCH (21:09)
[2022-05-18] MEDS: Atorvastatin Calcium 40 MG TAB PO SCH (21:09)
[2022-05-19] MEDS: Morphine 4 MG/ML VIAL SLOW IVP PRN ×6 (01:31→23:26)
[2022-05-19] MEDS: HYDROcodone/Acetaminophen 5/325 mg Tablet PO PRN ×3 (03:32→12:49)
[2022-05-19] MEDS: Meropenem 500 MG in Sodium Chloride 0.9% 100 ML IVPB SCH (05:41)
[2022-05-19] MEDS: Levothyroxine Sodium 75 MCG TAB PO SCH (05:41)
[2022-05-19 07:44] LABS: #Eosinphils 0.1 thou/uL (0.0-0.7); #Lymphocytes 1.4 thou/uL (1.20-3.40); #Monocytes 0.7 thou/uL (0.11-0.59); #Neutrophils 8.1 thou/uL (1.40-6.50); %Basophils 0.2 % (0.0-1.0); %Lymphocytes 13.9 % (21.0-51.0); %Monocytes 6.8 % (0.0-10.0); %Neutrophils 78.1 % (42.0-75.0); Hemoglobin 8.4 g/dL (14.0-18.0); Mean Corpuscular HGB CONC 30.3 g/dL (32.0-36.0); Mean Corpuscular Hemoglobin 26.8 pg (27.0-31.0); Mean Corpuscular Volume 88.2 fl (78.0-98.0); Mean Platelet Volume 8.7 fL (7.4-10.4); Platelet Count 297 10x3/uL (130-400); RBC Distribution Width 14.2 % (11.5-14.5); Red Blood Cell (RBC) Count 3.13 mill/uL (4.70-6.10); White Blood Cell (WBC) Count 10.3 10x3/uL (4.8-10.8)
[2022-05-19 07:57] LABS: Anion Gap 9 mmol/L (10-20); BUN (Urea Nitrogen) 30 mg/dL (8.4-25.7); Calc. Creatinine Clearance 61 mL/min (70-130); Calcium 8.2 mg/dL (7.8-10.44); Carbon Dioxide 27 mmol/L (23-31); Chloride 115 mmol/L (98-107); Estimated GFR 87; Glucose 148 mg/dL (83-110); Magnesium 2.1 mg/dL (1.6-2.6); Phosphorus 3.3 mg/dL (2.3-4.7); Potassium 3.4 mmol/L (3.5-5.1); Sodium 148 mmol/L (136-145)
[2022-05-19] MEDS: Venlafaxine XR 37.5 MG CAP PO SCH (08:33)
[2022-05-19] MEDS: buPROPion 75 MG TAB PO SCH ×2 (08:33→21:28)
[2022-05-19] MEDS: Gabapentin 100 MG CAP PO SCH ×3 (08:33→21:28)
[2022-05-19] MEDS: Sodium Chloride 0.9% 1,000 ML IV SCH ×3 (08:34→17:16)
[2022-05-19] MEDS: Aspirin 81 mg Enteric Coated Tablet PO SCH (08:35)
[2022-05-19] MEDS: VANCOMYCIN 1.25 GM/250 ML BAG 1.25 GM in Premix Bag 1 BAG IVPB SCH (12:49)
[2022-05-19] MEDS: Meropenem 1 GM in Sodium Chloride 0.9% 100 ML IVPB SCH ×2 (12:49→21:29)
[2022-05-19] MEDS ORDERED: Morphine 2 MG/ML VIAL SLOW IVP PRN (13:22)
[2022-05-19] MEDS ORDERED: Lorazepam 2 MG/ML VIAL SLOW IVP PRN (13:23)
[2022-05-19] MEDS: Donepezil HCl 10 MG TAB PO SCH (21:28)
[2022-05-19] MEDS: Atorvastatin Calcium 40 MG TAB PO SCH (21:28)
[2022-05-20] MEDS: Morphine 4 MG/ML VIAL SLOW IVP PRN ×6 (01:35→12:23)
[2022-05-20] MEDS: Sodium Chloride 0.9% 1,000 ML IV SCH ×2 (01:35→08:24)
[2022-05-20] MEDS: Levothyroxine Sodium 75 MCG TAB PO SCH (05:44)
[2022-05-20] MEDS: Meropenem 1 GM in Sodium Chloride 0.9% 100 ML IVPB SCH ×2 (05:44→11:31)
[2022-05-20] MEDS: VANCOMYCIN 1.25 GM/250 ML BAG 1.25 GM in Premix Bag 1 BAG IVPB SCH (08:25)
[2022-05-20] MEDS: buPROPion 75 MG TAB PO SCH (08:25)
[2022-05-20] MEDS: Aspirin 81 mg Enteric Coated Tablet PO SCH (08:25)
[2022-05-20] MEDS: Gabapentin 100 MG CAP PO SCH ×2 (08:25→11:31)
[2022-05-20] MEDS: Venlafaxine XR 37.5 MG CAP PO SCH (08:25)
[2022-05-20 09:12] VITALS: BP 124/73; TEMP 100.5
== END 2022-05-20 12:32 | disposition hospice, inpatient (51) | DRG 853 ==
LOC: ERS 12:36 → ERHOLD 15:04 → OBSVTOIN 15:28 → T4-A 18:45
PROVIDERS: ADMIT Family Medicine; ATTEND Family Medicine
PROC: 8E0ZXY6 Isolation (ICD-10-PCS; 2022-05-17)
PROC: 0KBP0ZZ Excision of Left Hip Muscle, Open Approach (ICD-10-PCS; principal; 2022-05-18)
PROC: 0KBN0ZZ Excision of Right Hip Muscle, Open Approach (ICD-10-PCS; 2022-05-18)
DX: A41.01 Sepsis due to Methicillin susceptible Staphylococcus aureus (principal); Z66 Do not resuscitate; Z51.5 Encounter for palliative care; G93.41 Metabolic encephalopathy; L89.154 Pressure ulcer of sacral region, stage 4; U07.1 COVID-19; N17.9 Acute kidney failure, unspecified; F02.83 Dementia in other diseases classified elsewhere, unspecified severity, with mood disturbance; I48.20 Chronic atrial fibrillation, unspecified; E11.52 Type 2 diabetes mellitus with diabetic peripheral angiopathy with gangrene; E11.65 Type 2 diabetes mellitus with hyperglycemia; I25.10 Atherosclerotic heart disease of native coronary artery without angina pectoris; E03.9 Hypothyroidism, unspecified; G31.83 Neurocognitive disorder with Lewy bodies; E78.5 Hyperlipidemia, unspecified; F32.A Depression, unspecified; Z89.612 Acquired absence of left leg above knee; Z95.1 Presence of aortocoronary bypass graft; Z79.899 Other long term (current) drug therapy; Z79.84 Long term (current) use of oral hypoglycemic drugs; Z79.890 Hormone replacement therapy; Z79.01 Long term (current) use of anticoagulants; Z79.82 Long term (current) use of aspirin; Z74.01 Bed confinement status; Z90.49 Acquired absence of other specified parts of digestive tract; Z98.890 Other specified postprocedural states; Z82.0 Family history of epilepsy and other diseases of the nervous system
CPT/HCPCS: 36415; 36416; 70450; 71045; 74177; 80048; 80053; 80202; 82553; 83605; 83690; 83735; 84100; 84484; 85025; 85610; 85730; 86850; 86900; 86901; 87040; 87070; 87077; 87149; 87186; 87205; 88304; 93005; 96374; 96375; 97139; J0696; J1815; J2060; J2185; J2270; J2272; J2405; J3010; J3370; J3370-JW; J3490; J7050; Q9967

== ENCOUNTER 2022-05-20 12:55 | Inpatient (IN) | payer OTHER ==
[2022-05-20] MEDS ORDERED: diphenhydrAMINE 50 MG/ML VIAL IVP PRN (13:45)
[2022-05-20] MEDS ORDERED: Scopolamine 1.5 mg/72 hour Patch TOP PRN (13:45)
[2022-05-20] MEDS ORDERED: Bisacodyl 10 MG SUPP PR PRN (13:45)
[2022-05-20] MEDS ORDERED: Acetaminophen 650 MG Suppository PR PRN (13:45)
[2022-05-20] MEDS ORDERED: Promethazine HCl 25 MG SUPP PR PRN (13:45)
[2022-05-20] MEDS ORDERED: Ondansetron PF 4 MG/2 ML Vial IVP PRN (13:45)
[2022-05-20] MEDS: Morphine 4 MG/ML VIAL SLOW IVP PRN ×4 (14:37→22:20)
[2022-05-21] MEDS: Morphine 4 MG/ML VIAL SLOW IVP PRN ×9 (00:31→21:21)
[2022-05-21] MEDS ORDERED: Scopolamine 1.5 mg/72 hour Patch TOP PRN (10:27)
[2022-05-21] MEDS ORDERED: Scopolamine 1.5 mg/72 hour Patch TOP SCH (10:30)
[2022-05-21] MEDS: Lorazepam 2 MG/ML VIAL SLOW IVP PRN ×2 (11:05→15:52)
[2022-05-22] MEDS: Morphine 4 MG/ML VIAL SLOW IVP PRN ×5 (01:40→10:47)
[2022-05-22] MEDS ORDERED: fentaNYL 50 mcg/hour Patch TD SCH (12:00)
[2022-05-22] MEDS: Morphine 10 MG/ML VIAL SLOW IVP PRN ×3 (13:44→21:20)
[2022-05-23] MEDS: Morphine 10 MG/ML VIAL SLOW IVP PRN ×3 (01:18→08:56)
[2022-05-23 07:41] VITALS: BP 94/64; TEMP 101.5
== END 2022-05-23 10:48 | disposition expired | DRG 951 ==
LOC: T4-A 12:55
PROVIDERS: ADMIT Family Medicine; ATTEND Family Medicine
DX: Z51.5 Encounter for palliative care (principal); A41.9 Sepsis, unspecified organism; G93.41 Metabolic encephalopathy; N17.9 Acute kidney failure, unspecified; Z66 Do not resuscitate; I73.9 Peripheral vascular disease, unspecified; G31.83 Neurocognitive disorder with Lewy bodies; F02.80 Dementia in other diseases classified elsewhere, unspecified severity, without behavioral disturbance, psychotic disturbance, mood disturbance, and anxiety; D64.9 Anemia, unspecified; I25.10 Atherosclerotic heart disease of native coronary artery without angina pectoris; E03.9 Hypothyroidism, unspecified; I48.91 Unspecified atrial fibrillation; I10 Essential (primary) hypertension; E78.5 Hyperlipidemia, unspecified; L89.159 Pressure ulcer of sacral region, unspecified stage; E11.42 Type 2 diabetes mellitus with diabetic polyneuropathy; Z86.73 Personal history of transient ischemic attack (TIA), and cerebral infarction without residual deficits
CPT/HCPCS: 97139; J2060; J2270